=== PATIENT | female | born 1950 | race Caucasian/White ===

== ENCOUNTER 2020-11-01 09:13 | Outpatient (REF) | payer MEDICARE, OTHER, SELFPAY ==
[2020-11-01 11:23] LABS: MANUAL DIFF FLAG NO
[2020-11-01 11:32] LABS: Basophils Percent Auto 0.5 % (0-2); Eosinophils Absolute Auto 0.2 X10*3/uL (0.0-0.4); Eosinophils Percent Auto 2.7 % (0-4); Hematocrit 39.4 % (37-47); Hemoglobin 12.9 g/dl (12.0-16.0); Imm Gran Abs Auto 0.02 X10*3/uL (0.00-0.03); Imm Gran Pct Auto 0.3 % (0.0-0.4); Lymphocytes Absolute Auto 1.2 X10*3/uL (1.2-4.9); Lymphocytes Percent Auto 19.6 % (20-40); Mean Corpuscular HGB Conc 32.7 g/dl (31.0-35.0); Mean Corpuscular Volume 94.7 fL (80-98); Mean Platelet Volume 12.3 fL (9.4-12.3); Monocytes Absolute Auto 0.6 X10*3/uL (0.1-1.2); Monocytes Percent Auto 9.3 % (2-11); Neutrophils Absolute Auto 4.2 X10*3/uL (2.0-8.3); Neutrophils Percent Auto 67.6 % (45-73); Platelet Count 234 X10*3/uL (160-400); Red Blood Count 4.16 X10*6/uL (4.20-5.50); Red Cell Distribution Width 12.4 % (11.0-16.0); White Blood Count 6.3 X10*3/uL (4.8-10.8)
[2020-11-01 11:54] LABS: Alanine Aminotransferase 25 U/L (0-31); Albumin Level 4.6 g/dL (3.5-5.0); Alkaline Phosphatase 78 U/L (39-117); Anion Gap 14 (12-20); Aspartate Amino Transferase 20 U/L (5-31); Bilirubin Total 0.7 mg/dL (0.0-1.0); Blood Urea Nitrogen 21 mg/dL (9-16); Calcium 9.8 mg/dL (8.4-10.2); Carbon Dioxide 27 mmol/L (22-29); Chloride 107 mmol/L (96-108); Cholesterol 195 mg/dL; Estimated Glomerular Filt Rate 47; Glucose Fasting 93 mg/dL (60-99); HDL Cholesterol 55 mg/dL; LDL Cholesterol Calculated 124 mg/dl; Potassium 4.7 mmol/L (3.3-5.1); Sodium 143 mmol/L (135-145); Total Protein 7.2 g/dL (6.5-8.0); Triglycerides 84 mg/dL
[2020-11-01 12:18] LABS: TSH reflex Free T4 3.46 uIU/mL (0.32-4.0)
== END 2020-11-01 09:14 | disposition home or self-care (01) ==
LOC: HO.HMGCLDS 09:13
PROVIDERS: PCP Internal Medicine; Visit Provider Internal Medicine
DX: R07.9 Chest pain, unspecified (principal); I12.9 Hypertensive chronic kidney disease with stage 1 through stage 4 chronic kidney disease, or unspecified chronic kidney disease; N18.30 Chronic kidney disease, stage 3 unspecified; I34.0 Nonrheumatic mitral (valve) insufficiency
CPT/HCPCS: 36415; 80053; 80061; 84443; 85025

== ENCOUNTER → 2020-12-07 10:19 | Outpatient (REF) | payer MEDICARE, OTHER, SELFPAY ==
--- NOTE | 2020-12-07 10:47 | CA_ITS ---
Transthoracic Echocardiogram Patient (Last, First, Middle): Annie Carcamo, Gender: Female Date of : 1950 Age: 70 Procedure Date: 12/07/2020 Procedure Type: Transthoracic Echocardiogram Location: OP Height: 162.56 cm Weight: 112.04 kg BSA: 2.14 m2 Heart Rate: bpm BP: 170 / 82 mmHg Quality Nurse: ALEJANDRO Luis MD: Kajal White MD Corn Sheller: Roberto Miramontes MD Symptoms: R07.9 - Chest pain, unspecified Study Quality: Fair ECG Rhythm: Sinus Conclusions: - 1. Normal LV systolic function with pseudonormal filling pattern 2. Mild left atrial enlargement 3. Mild aortic regurgitation with increased gradient across aortic valve, leaflets not well visualized, early aortic stenosis cannot be ruled out 4. [id number] mitral regurgitation 5. Borderline elevatedRV systolic pressure 6. No pericardial effusion Findings Left Ventricle Normal left ventricular size, thickness, and systolic function. The visually estimated ejection fraction is between 60-65%. Spectral Doppler is indicative of a pseudonormal filling pattern. E/E prime ratio is between 8 and 15 consistent with indeterminate filling pressures. Right Ventricle Normal right ventricular cavity size and systolic function. Atria The left atrium is mildly dilated. There is no evidence of interatrial shunt. The right atrium is likely dilated. Aortic Valve The aortic valve was not well visualized. The peak aortic gradient is 21 mmHg.The mean gradient is 11 mmHg. There is mild aortic valve regurgitation. Mitral Valve There is mild anterior and moderate posterior mitral leaflet thickening. The posterior mitral leaflet has restricted mobility. There is mild mitral annular calcification. There is mild to moderate mitral valve regurgitation. There is no mitral valve stenosis. Pulmonic Valve The pulmonic valve was not well visualized. Tricuspid Valve Likely normal tricuspid valve structure and function. There is mild tricuspid valve regurgitation. The right ventricular systolic pressure is normal. The right ventricular systolic pressure is 39 mmHg. Normal right atrial pressure. Great Vessels All visible segments of the aorta are normal in size. The pulmonary artery was not well visualized. Venous The inferior vena cava is normal in size and collapses greater than 50% with inspiration. Pericardium/Pleural There is no evidence of pericardial effusion. Prior Study Comparison No prior study available for comparison. Measurements 2D Linear Measurements IVSd: 1.07 0.6-0.9/0.6-1.0 cm LVIDd: 5.03 3.9-5.3/4.2-5.9 cm LVIDd Index: 2.35 2.4-3.2/2.2-3.1 cm/m2 LVIDs: 3.61 2.0-3.6 cm LVPWd: 1.09 0.7-1.1 cm Ao Root: 3.50 2.1-3.5 cm LA Diam: 4.20 2.7-3.8/3.0-4.0 cm LAIDs Index: 1.96 1.5-2.3 cm/m2 LV Mass: 254.21 67-162/88-224 g LV Mass Index: 118.79 43-95/49-115 g/m2 LVOT Diam: 2.10 3.0+(-)1.3 cm Mitral Valve MV Pk E: 1.57 MV PK A: 1.39 MV Decel Time: 208.00 E/A: 1.10 E'Lateral: 9.03 E'Medial: 7.94 E/E' Med: 19.80 E/E' Lat: 17.40 PHT: 61.00 MVA PHT: 3.61 Decel [place]: 7.54 Aortic Valve AoV Pk Jason: 2.31 AoV Mn Jason: 1.50 AoV VTI: 0.55 AoV Pk Grad: 21.00 Aov Mn Grad: 11.00 ZAC Cont.VTI: 2.41 LVOT LVOT Pk Jason: 1.51 LVOT Mn Jason: 1.01 LVOT VTI: 0.38 LVOT Pk Grad: 9.00 LVOT Mn Grad: 5.00 LVOT Diam: 2.10 LVOT Area: 3.46 Diastolic Function MV Pk E: 1.57 MV Pk A: 1.39 E/A: 1.10 E'Medial: 7.94 E/E' Med: 19.80 E' Laterial: 9.03 E/E' Lat: 17.40 Tricuspid Valve TR Pk Jason: 2.98 TR Pk Grad: 36.00 RA Press: 3.00 RVSP: 39.00 Great Vessels Aorta Ao Root-2D: 3.50 2.0-3.7 cm Ao Asc: 3.00 2.1-3.4 cm Ao Arch: 2.20 Updated in Other Vendor System with Status of Final Roberto Miramontes MD electronically signed on 12/08/2020 3:23:47 PM with status of Final
== END ==
LOC: HO.CARD 10:19
PROVIDERS: Visit Provider Internal Medicine
DX: R07.9 Chest pain, unspecified (principal); I34.0 Nonrheumatic mitral (valve) insufficiency; I12.9 Hypertensive chronic kidney disease with stage 1 through stage 4 chronic kidney disease, or unspecified chronic kidney disease; N18.30 Chronic kidney disease, stage 3 unspecified
CPT/HCPCS: 93306

== ENCOUNTER 2021-05-29 08:02 | Outpatient (REF) | payer MEDICARE, OTHER, SELFPAY ==
[2021-05-29 11:43] LABS: Alanine Aminotransferase 17 U/L (0-31); Albumin Level 4.6 g/dL (3.5-5.0); Alkaline Phosphatase 74 U/L (39-117); Anion Gap 13 (12-20); Aspartate Amino Transferase 16 U/L (5-31); Bilirubin Total 0.8 mg/dL (0.0-1.0); Blood Urea Nitrogen 20 mg/dL (9-16); Calcium 10.2 mg/dL (8.4-10.2); Carbon Dioxide 26 mmol/L (22-29); Chloride 109 mmol/L (96-108); Estimated Glomerular Filt Rate 41; Glucose Fasting 93 mg/dL (60-99); Potassium 4.8 mmol/L (3.3-5.1); Sodium 143 mmol/L (135-145)
== END 2021-05-29 08:03 | disposition home or self-care (01) ==
LOC: HO.HMGCLDS 08:02
PROVIDERS: PCP Internal Medicine; Visit Provider Internal Medicine
DX: I13.0 Hypertensive heart and chronic kidney disease with heart failure and stage 1 through stage 4 chronic kidney disease, or unspecified chronic kidney disease (principal); N18.30 Chronic kidney disease, stage 3 unspecified; I50.9 Heart failure, unspecified
CPT/HCPCS: 36415; 80053

== ENCOUNTER 2021-06-27 08:24 | Outpatient (REF) | payer MEDICARE, OTHER, SELFPAY ==
--- NOTE | ~2021-06-27 | US_ITS ---
EXAMINATION: US ABDOMEN COMPLETE CLINICAL INFORMATION: Abdominal pain. COMPARISON: None. TECHNIQUE: Real-time imaging of the abdominal viscera. FINDINGS: PANCREAS: Normal. ABDOMINAL AORTA: The proximal, mid, and distal segments are normal in caliber except for mild atherosclerotic calcification. INFERIOR VENA CAVA: Visualized portions are normal. LIVER: The right hepatic lobe measures 17.0 cm in length. The liver is normal in size. The liver contour is normal. Parenchymal echogenicity is normal. No focal hepatic lesion. There is no intrahepatic biliary duct dilatation seen. GALLBLADDER: Multiple echogenic gallstones shadowing the entire gallbladder. There is positive MARYANN sign. Gallbladder wall thickness is 0.15 cm. COMMON BILE DUCT: Normal in caliber measuring 0.29 cm in diameter. RIGHT KIDNEY: There is an anechoic cyst in the lower pole measuring 1.8 x 1.9 x 1.6 cm. No hydronephrosis. No renal calculi or focal parenchymal lesions. The kidney measures 10.0 cm in maximum dimension. LEFT KIDNEY: There is a complex upper pole cyst with septations measuring 5.9 x 3.5 x 4.3 cm, Bosniak type II. In addition, there are 3 anechoic cysts which appear to be communicating with each other in the lower pole. The largest cyst measures 3.4 x 3.0 x 3.2 cm. No hydronephrosis. No renal calculi or focal parenchymal lesions. The kidney measures 11.3 cm in maximum dimension. SPLEEN: Normal. The spleen measures 11.5 cm in maximum dimension. FREE FLUID: None. US/US abdomen complete IMPRESSION: Gallstones with positive MARYANN sign. Gallbladder wall thickness is 0.15 cm. Complex cyst upper pole left kidney. Three simple cysts connecting to each other in lower pole left kidney. Mild hepatic steatosis.
== END 2021-06-27 08:25 | disposition home or self-care (01) ==
LOC: HO.HMGCX 08:24
PROVIDERS: PCP Internal Medicine; Visit Provider Internal Medicine
DX: R10.9 Unspecified abdominal pain (principal)
CPT/HCPCS: 76700

== ENCOUNTER 2021-12-31 08:28 | Outpatient (REF) | payer MEDICARE, OTHER, SELFPAY ==
[2021-12-31 11:35] LABS: Hematocrit 38.2 % (37.0-47.0); Hemoglobin 12.1 g/dl (12.0-16.0); Mean Corpuscular HGB Conc 31.7 g/dl (31.0-35.0); Mean Corpuscular Hemoglobin 30.6 pg (27.0-33.0); Mean Corpuscular Volume 96.5 fL (80.0-98.0); Platelet Count 263 X10*3/uL (160-400); Red Blood Count 3.96 X10*6/uL (4.20-5.50); Red Cell Distribution Width 12.2 % (11.0-16.0); White Blood Count 7.9 X10*3/uL (4.8-10.8)
[2021-12-31 12:03] LABS: TSH reflex Free T4 2.39 uIU/mL (0.32-4.0)
[2021-12-31 12:04] LABS: Alanine Aminotransferase 20 U/L (0-31); Albumin Level 4.2 g/dL (3.5-5.0); Alkaline Phosphatase 84 U/L (39-117); Anion Gap 15 (12-20); Aspartate Amino Transferase 23 U/L (5-31); Bilirubin Total 0.7 mg/dL (0.0-1.0); Blood Urea Nitrogen 17 mg/dL (9-16); Calcium 10.1 mg/dL (8.4-10.2); Carbon Dioxide 24 mmol/L (22-29); Chloride 107 mmol/L (96-108); Cholesterol 191 mg/dL; Estimated Glomerular Filt Rate 45; Glucose Fasting 95 mg/dL (60-99); HDL Cholesterol 54 mg/dL; LDL Cholesterol Calculated 126 mg/dl; Potassium 4.5 mmol/L (3.3-5.1); Sodium 141 mmol/L (135-145); Total Protein 6.6 g/dL (6.5-8.0); Triglycerides 55 mg/dL
== END 2021-12-31 08:29 | disposition home or self-care (01) ==
LOC: HO.HMGCLDS 08:28
PROVIDERS: PCP Internal Medicine; Visit Provider Internal Medicine
DX: Z00.00 Encounter for general adult medical examination without abnormal findings (principal); I12.9 Hypertensive chronic kidney disease with stage 1 through stage 4 chronic kidney disease, or unspecified chronic kidney disease; N18.30 Chronic kidney disease, stage 3 unspecified
CPT/HCPCS: 36415; 80053; 80061; 84443; 85027

== ENCOUNTER 2022-09-03 09:01 | Outpatient (REF) | payer MEDICARE, OTHER, SELFPAY ==
[2022-09-03 14:22] LABS: MANUAL DIFF FLAG NO
[2022-09-03 14:30] LABS: Basophils Absolute Auto 0.1 X10*3/uL (0.0-0.2); Basophils Percent Auto 0.4 % (0-2); Eosinophils Absolute Auto 0.1 X10*3/uL (0.0-0.4); Eosinophils Percent Auto 1.2 % (0-4); Hematocrit 38.5 % (37.0-47.0); Hemoglobin 12.1 g/dl (12.0-16.0); Imm Gran Abs Auto 0.06 X10*3/uL (0.00-0.03); Imm Gran Pct Auto 0.5 % (0.0-0.4); Lymphocytes Absolute Auto 1.2 X10*3/uL (1.2-4.9); Lymphocytes Percent Auto 10.8 % (20-40); Mean Corpuscular HGB Conc 31.4 g/dl (31.0-35.0); Mean Corpuscular Hemoglobin 30.4 pg (27.0-33.0); Mean Corpuscular Volume 96.7 fL (80.0-98.0); Mean Platelet Volume 11.9 fL (9.4-12.3); Monocytes Absolute Auto 1.1 X10*3/uL (0.1-1.2); Monocytes Percent Auto 9.2 % (2-11); Neutrophils Absolute Auto 8.9 x10*3/uL (2.0-8.3); Neutrophils Percent Auto 77.9 % (45-73); Platelet Count 443 X10*3/uL (160-400); Red Blood Count 3.98 X10*6/uL (4.20-5.50); Red Cell Distribution Width 12.5 % (11.0-16.0); White Blood Count 11.5 X10*3/uL (4.8-10.8)
[2022-09-03 17:04] LABS: Alanine Aminotransferase 21 U/L (0-31); Albumin Level 4.1 g/dL (3.5-5.0); Alkaline Phosphatase 85 U/L (39-117); Anion Gap 15 (12-20); Aspartate Amino Transferase 19 U/L (5-31); Bilirubin Total 0.6 mg/dL (0.0-1.0); Blood Urea Nitrogen 13 mg/dL (9-16); Calcium 9.5 mg/dL (8.4-10.2); Carbon Dioxide 26 mmol/L (22-29); Chloride 105 mmol/L (96-108); Cholesterol 174 mg/dL; Estimated Glomerular Filt Rate 55; Glucose Fasting 101 mg/dL (60-99); HDL Cholesterol 45 mg/dL; LDL Cholesterol Calculated 113 mg/dl; Potassium 4.4 mmol/L (3.3-5.1); Sodium 142 mmol/L (135-145); Total Protein 6.8 g/dL (6.5-8.0); Triglycerides 83 mg/dL; Vitamin D 25-OH Total 41.3 ng/mL (>30)
== END 2022-09-03 09:02 | disposition home or self-care (01) ==
LOC: HO.HMGCLDS 09:01
PROVIDERS: PCP Internal Medicine; Visit Provider Internal Medicine
DX: I12.9 Hypertensive chronic kidney disease with stage 1 through stage 4 chronic kidney disease, or unspecified chronic kidney disease (principal); N18.30 Chronic kidney disease, stage 3 unspecified; I34.0 Nonrheumatic mitral (valve) insufficiency
CPT/HCPCS: 36415; 80053; 80061; 82306; 85025

== ENCOUNTER 2023-03-21 09:11 | Outpatient (REF) | payer MEDICARE, OTHER, SELFPAY ==
[2023-03-21 11:17] LABS: MANUAL DIFF FLAG NO
[2023-03-21 11:20] LABS: Basophils Percent Auto 0.5 % (0-2); Eosinophils Absolute Auto 0.2 X10*3/uL (0.0-0.4); Eosinophils Percent Auto 2.9 % (0-4); Hemoglobin 12.4 g/dl (12.0-16.0); Imm Gran Abs Auto 0.01 X10*3/uL (0.00-0.03); Imm Gran Pct Auto 0.2 % (0.0-0.4); Lymphocytes Absolute Auto 1.2 X10*3/uL (1.2-4.9); Mean Corpuscular HGB Conc 32.6 g/dl (31.0-35.0); Mean Corpuscular Hemoglobin 31.3 pg (27.0-33.0); Monocytes Absolute Auto 0.6 X10*3/uL (0.1-1.2); Monocytes Percent Auto 10.2 % (2-11); Neutrophils Absolute Auto 4.2 x10*3/uL (2.0-8.3); Neutrophils Percent Auto 67.2 % (45-73); Platelet Count 248 X10*3/uL (160-400); Red Blood Count 3.96 X10*6/uL (4.20-5.50); Red Cell Distribution Width 12.5 % (11.0-16.0); White Blood Count 6.2 X10*3/uL (4.8-10.8)
[2023-03-21 11:44] LABS: Alanine Aminotransferase 17 U/L (0-31); Albumin Level 4.4 g/dL (3.5-5.0); Alkaline Phosphatase 67 U/L (39-117); Anion Gap 17 (12-20); Aspartate Amino Transferase 18 U/L (5-31); Bilirubin Total 0.7 mg/dL (0.0-1.0); Blood Urea Nitrogen 18 mg/dL (9-16); Calcium 10.2 mg/dL (8.4-10.2); Carbon Dioxide 25 mmol/L (22-29); Chloride 107 mmol/L (96-108); Cholesterol 183 mg/dL; Estimated Glomerular Filt Rate 44; Glucose Fasting 92 mg/dL (60-99); HDL Cholesterol 64 mg/dL; LDL Cholesterol Calculated 105 mg/dl; Potassium 4.6 mmol/L (3.3-5.1); Sodium 144 mmol/L (135-145); Total Protein 7.3 g/dL (6.5-8.0); Triglycerides 70 mg/dL
[2023-03-21 12:00] LABS: TSH reflex Free T4 3.21 uIU/mL (0.32-4.0)
== END 2023-03-21 09:12 | disposition home or self-care (01) ==
LOC: HO.HMGCLDS 09:11
PROVIDERS: PCP Internal Medicine; Visit Provider Internal Medicine
DX: I12.9 Hypertensive chronic kidney disease with stage 1 through stage 4 chronic kidney disease, or unspecified chronic kidney disease (principal); N18.30 Chronic kidney disease, stage 3 unspecified
CPT/HCPCS: 36415; 80053; 80061; 84443; 85025

== ENCOUNTER 2023-04-01 09:26 | Outpatient (AMB) | payer MEDICARE, OTHER, SELFPAY ==
--- NOTE | 2023-04-01 09:34 | A.OFFVIS_ITS ---
Intake Vital Signs 04/01/23 09:35 Height 5 ft 4 in Weight 248 lb BMI 42.6 BP 132/70 Blood Pressure Location Lt brachial Position Sitting Pulse 64 Pulse Source Pulse Oximeter Pulse Oximetry (%) 96 Oxygen Delivery Method Room Air Intake Visit Reasons: V G0439 Intake Note: Pt is here today for AWV. Allergies fentanyl Adverse Reaction (Intermediate, Verified 04/01/23 09:39) she was told by surgeon that she had medication reaction Medication List - Last Reconciled 04/01/23 by Kajal White MD albuterol sulfate 90 mcg/actuation inhalation amlodipine 10 mg PO DAILY comp.stocking,knee,long,medium As directed flu vac 2020 [id number](PF) 60 mcg (15 mcg x 4)/0.5 mL mL IM fluticasone furoate-vilanterol 100-25 mcg/dose inhalation furosemide 40 mg PO DAILY labetalol 300 mg PO BID pantoprazole 40 mg PO DAILY valsartan 320 mg PO DAILY HPI V G0439 HPI Details Initiated the conversation about Advanced Directives. Advanced Directives help? patients prepare for current and future decisions about their medical treatment? and place of care. Discussed with patient that it is a process where a patients? current condition and prognosis are reviewed, their wishes for information? regarding their illness are elicited, and likely medical dilemmas are presented? and options discussed. The form can be amended as needed, reviewed yearly and? make changes as needed IPPE/AWV ? year old presents? for her ? Annual? Wellness Visit, initial visit.? Medical / Social History Reviewed? Past Medical History ?Yes? . ? [place]? of Care / Care Team list updated ?Yes . ? Surgical/Hospitalization? History ?Yes . ? Current Medications? (including OTC and supplements) ?Yes . ? Family History ?Yes? . ? Tobacco? Control form ?Yes . ? AUDIT-C (Alcohol use) form? ?Yes . ? Illicit drug use in Social? History ?Yes . ? Current diagnosis of? depression? ?No ? Appropriate PHQ2/PHQ9? completed ?Yes . ? Data entered by ?Medical? [facility] [employer] and reviewed by provider ? Fall Risk ? Fall? History? Have you had any falls with? injury in the past year? ?No . ? Have you had two or more? falls in the past year? ?No . ? Fall Risk Assessment: ?No? falls in the past year . ? HRA filled out by? the patient, reviewed by Provider and scanned. ? IPPE/AWV ? Balance? [place]? ?Yes . ? Tandem? walk ?Yes . ? Walk and? Turn ?Yes . ? Rise from? sit to stand ?Yes . ?Vision? Corrective? lens ?Yes ? Vision? screen ? Up-to-date, has an appointment [] for vision? screening and glaucoma screening ?Hearing? Whisper? test ?pass .? Initiated the conversation about Advanced Directives. Advanced Directives help? patients prepare for current and future decisions about their medical treatment? and place of care. Discussed with patient that it is a process where a patients? current condition and prognosis are reviewed, their wishes for information? regarding their illness are elicited, and likely medical dilemmas are presented? and options discussed. The form can be amended as needed, reviewed yearly and? make changes as needed Written? Plan?Completed. See Patient? Documents. Pt presents for annual [facility] Medical History Abdominal pain Annual physical exam Asthma Martínez's esophagus Chest pain CKD (chronic kidney disease), stage III Gall stones Heart murmur History of mammogram HTN (hypertension) Mitral regurgitation Osteoporosis Venous insufficiency Surgical History H/O colonoscopy H/O hysterectomy with unilateral oophorectomy S/P total abdominal hysterectomy Family History Father No problems noted. Mother CVD (cardiovascular disease) Social History Housing: Condominium Alcohol intake: never Patient Tobacco Use Status: Former Tobacco user Quit Date: 1982 Tobacco use type: Cigarette Years Smoked: 8 years e-Cigarette/Vaping Use: Never Used Current occupational status: retired Questionnaire Medicare Wellness Checkup [age] What gender do you identify with?: female During the past 4 weeks, how much have you been bothered by emotional problems such as feeling anxious, depressed, irritable, sad or downhearted, and blue?: not at all During the past 4 weeks, has your physical & emotional health limited your social activities with family, friends, neighbors, or groups?: not at all During the past 4 weeks, how much bodily pain have you generally had?: moderate pain During the past 4 weeks, was someone available to help you if you needed & wanted help?: yes, quite a bit During the past 4 weeks, what was the hardest physical activity you could do for at least 2 minutes?: heavy Can you get to places out of walking distance without help? (For eg., can you travel alone on buses, taxis or drive your car?): Yes Can you go shopping for groceries or clothes without someone's help?: Yes Can you prepare your own meals?: Yes Can you do your housework without help?: Yes Because of any health problems, do you need the help of another person with your personal care needs such as eating, bathing, dressing or getting around the house?: No Can you handle your own money without help?: Yes During the past 4 weeks, how would you rate your health in general?: fair During the past 4 weeks how have things been going for you?: good & bad parts about equal Are you having difficulties driving your car?: no Do you always fasten your seat belt when you are in a car?: yes, usually During past 4 weeks, have you been bothered by the following: never: Falling or dizzy when standing up, Sexual problems?, Trouble eating well?, Teeth or denture problems? and Problems using the telephone? and always: Tiredness or fatigue? Have you fallen 2 or more times in the past year?: No Are you afraid of falling?: No Are you a smoker?: no During the past 4 weeks, how many drinks of wine, beer, or other alcoholic beverages did you have?: no alcohol at all Do you exercise for about 20 minutes 3 or more times a week?: no, I usually do not exercise this much Have you been given information to help with the following?: no: Hazards in your house that might hurt you? and no: Keeping track of your medications? How often do you have trouble taking medicines the way you have been told to take them?: I always take medicine as prescribed How confident are you that you can control & manage most of your health problems?: somewhat confident What is your race?: White Mini Mental State Exam (MMSE) Orientation What is the (year) (season) (date) (day) (month)?: year, season, date, day and month Registration Name of 3 unrelated objects clearly and slowly, then ask patient to repeat all 3 of them. (1st repeat determines score. Make sure they can repeat all three): object 2 and object 3 Attention & Calculation (CHOOSE ONE) Spell WORLD backwards (DLROW): 5 letters Recall Ask patient to repeat the 3 items from question #3.: object 1, object 2 and object 3 Language Show patient a wristwatch & ask what it is. Repeat for pencil.: watch and pencil Ask the patient to repeat the phrase 'No ifs, ands, or buts' after you.: correct Ask the patient to 'take a piece of paper with their right hand' 'fold paper in half' 'place paper on floor': take paper in right hand, fold paper in half and place paper on floor Print the sentence 'CLOSE YOUR EYES' on a piece. If patient actually closes eyes then score.: followed written direction Give patient a blank piece of paper & ask to write a sentence. Score if it contains a noun & verb.: sentence contains subject and verb Score Score: 23 Activity of Daily Living Bathing - sponge bath, tub bath or shower: receives no assistance (gets in/out by self, if usual bathing means Dressing - getting clothes from closets & drawers, including inner/outer garments & fasteners.: gets clothes & gets completely dressed without help Toileting - going to the 'toilet room' for urine/bowel elimination & cleaning self/arranging clothes: goes to toilet room, cleans self, arranges clothes without help Transfer: moves in & out of bed and chair without help (may use support object) Continence: controls urination/bowel movements completely by self Feeding: feeds self without help Total Score: 0 Information obtained from: patient Using telephone: independent Traveling: independent Shopping: independent Preparing meals: independent Housework: independent Taking medicine: independent Managing money: independent PHQ-9 Over the last 2 weeks, how often have you been bothered by any of the following problems? 1. Little interest or pleasure in doing things: not at all 2. Feeling down, depressed, or hopeless: not at all 3. Trouble falling or staying asleep, or sleeping too much: not at all 4. Feeling tired or having little energy: not at all 5. Poor appetite or overeating: not at all 6. Feeling bad about yourself - or that you are a failure or have let yourself or your family down: not at all 7. Trouble concentrating on things, such as reading the newspaper or watching television: not at all 8. Moving or speaking so slowly that other people could have noticed. Or the opposite - being so fidgety or restless that you have been moving around a lot more than usual: not at all 9. Thoughts that you would be better off or of hurting yourself in some way: not at all Total score: 0 Depression Screening Interpretation: Negative Source: Developed by Drs. Edward Mccormick, Jemima Parrish, Long Beltre and colleagues, with an educational delfin from [employer]. Review of Systems Const All systems reviewed & are unremarkable except as noted in HPI and below Reports no additional complaints Eyes Reports no additional complaints ENT Reports no additional complaints Card Reports no additional complaints Resp Reports no additional complaints GI Reports no additional complaints Reports no additional complaints Neuro Reports no additional complaints Physical Exam Vital Signs: Last Vital Signs Pulse 64 04/01/23 09:35 BP 132/70 04/01/23 09:35 Pulse Ox 96 04/01/23 09:35 Oxygen Delivery Method Room Air 04/01/23 09:35 BMI result Body Mass Index 42.6 Const General: no acute distress HEENT Head: Yes normal to inspection Eyes General: appearance normal, both eyes and all related structures Neck Neck: Yes no lymphadenopathy and Yes supple Resp Effort & Inspection: normal respiratory effort Auscultation: clear to auscultation bilaterally Cardio Rhythm: regular rhythm Heart sounds: S1 normal heart sound present and S2 normal heart sound present GI Inspection: Yes normal to inspection Palpation (GI): Soft to palpation Percussion: Yes normal to percussion Auscultation: normal bowel sounds Extrem Other: 4 +NONPITTING EDEMA BILATERALLY, WITH ERYTHEMA AND CHRONIC VENOUS STASIS Assessment & Plan Assessment & Plan (1) CKD (chronic 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 She is up-to-date with mammogram and colonoscopy. Follow-up in 6 months with a fasting labs before (5) Over weight: Code(s): E66.3 - Overweight Plan: Weight loss discussed with the patient (6) Edema: Code(s): R60.9 - Edema, unspecified Plan: Continue furosemide compression stockings and lower extremity elevation Orders: Orders Comprehensive Met. Panel 6 Months I10 - Essential (primary) hypertension, I34.0 - Nonrheumatic mitral (valve) insufficiency, N18.30 - Chronic kidney disease, stage 3 unspecified, Z00.00 - Encounter for general adult medical examination without abnormal findings Complete Blood Count Auto Diff 6 Months I10 - Essential (primary) hypertension, I34.0 - Nonrheumatic mitral (valve) insufficiency, N18.30 - Chronic kidney disease, stage 3 unspecified, Z00.00 - Encounter for general adult medical examination without abnormal findings Lipid Panel 6 Months I10 - Essential (primary) hypertension, I34.0 - Nonrheumatic mitral (valve) insufficiency, N18.30 - Chronic kidney disease, stage 3 unspecified, Z00.00 - Encounter for general adult medical examination without abnormal findings TSH reflex Free T4 6 Months I10 - Essential (primary) hypertension, I34.0 - Nonrheumatic mitral (valve) insufficiency, N18.30 - Chronic kidney disease, stage 3 unspecified, Z00.00 - Encounter for general adult medical examination without abnormal findings Medications: New triamcinolone acetonide 0.1% 1 appl topical DAILY 453.6 grams 1RF Quality Reporting (2019) Depression/Bipolar (159/160/161/177) PHQ-9: Total score: 0 Coding Level of Care Code Medicare Subsequent (G0439) Diagnoses CKD (chronic kidney disease), stage III N18.30 HTN (hypertension) I10 Mitral regurgitation I34.0 Annual physical exam Z00.00 Over weight E66.3 Edema R60.9 Advance Care Planning Advance Care Planning discussion: Declined forms
[2023-04-01 09:35] VITALS: BP 132/70; PULSE 64; O2SAT 96; BMI 42.6
== END 2023-04-01 10:31 | disposition home or self-care (01) ==
PROVIDERS: Visit Provider Internal Medicine
DX: Z00.00 Encounter for general adult medical examination without abnormal findings (principal); N18.30 Chronic kidney disease, stage 3 unspecified; Z68.41 Body mass index [BMI] 40.0-44.9, adult; E66.01 Morbid (severe) obesity due to excess calories; I12.9 Hypertensive chronic kidney disease with stage 1 through stage 4 chronic kidney disease, or unspecified chronic kidney disease; I34.0 Nonrheumatic mitral (valve) insufficiency; R60.9 Edema, unspecified
CPT/HCPCS: G0439

== ENCOUNTER 2023-09-26 09:41 | Outpatient (REF) | payer MEDICARE, OTHER, SELFPAY | END 2023-09-26 09:42 | disposition home or self-care (01) | LOC: HO.HMGCLDS 09:41 | PROVIDERS: PCP Internal Medicine; Visit Provider Internal Medicine | DX: Z00.00 Encounter for general adult medical examination without abnormal findings (principal); I12.9 Hypertensive chronic kidney disease with stage 1 through stage 4 chronic kidney disease, or unspecified chronic kidney disease; N18.30 Chronic kidney disease, stage 3 unspecified; I34.0 Nonrheumatic mitral (valve) insufficiency | CPT/HCPCS: 36415; 80053; 80061; 84443; 85025 ==

== ENCOUNTER 2023-10-07 09:47 | Outpatient (AMB) | payer MEDICARE, OTHER, SELFPAY ==
[2023-10-07 09:47] VITALS: BP 136/68; PULSE 69; O2SAT 96; BMI 42.2
--- NOTE | 2023-10-07 09:47 | A.OFFPC_ITS ---
Vital Signs 10/07/23 09:47 Height 5 ft 4 in Weight 246 lb BMI 42.2 BP 136/68 Blood Pressure Location Rt brachial Position Sitting Pulse 69 Pulse Source Pulse Oximeter Pulse Oximetry (%) 96 Oxygen Delivery Method Room Air Intake Visit Reasons: 6 month follow up Intake Note: Pt is here today for 6 months follow up visit. Allergies fentanyl Adverse Reaction (Intermediate, Verified 10/07/23 09:52) she was told by surgeon that she had medication reaction Medication List - Last Reconciled 10/07/23 by Kajal White MD albuterol sulfate 90 mcg/actuation inhalation amlodipine 10 mg PO DAILY comp.stocking,knee,long,medium As directed 30-40mmhg compr.stocking,knee,long,x-lrg 30-40 mmHg compression flu vac 2020 [id number](PF) 60 mcg (15 mcg x 4)/0.5 mL mL IM fluticasone furoate-vilanterol 100-25 mcg/dose inhalation furosemide 40 mg PO DAILY labetalol 300 mg PO BID pantoprazole 40 mg PO DAILY triamcinolone acetonide 0.1% 1 appl topical DAILY valsartan 320 mg PO DAILY Tobacco use date assessed: 10/07/23 Fall risk assessment: No Falls in past year Last assessed Fall Risk: 10/07/23 Dental Screening Dental Screen Date: 10/07/23 Did you have a dental visit in the last 12 months?: Yes Did you have a dental problem in the last 6 months where you did not have access to dental care?: No Was dental information given to patient?: Patient has dentist HPI 6 month follow up HPI Details PATIENT PRESENTS FOR THE FOLLOW-UP OF HYPERTENSION CHRONIC KIDNEY DISEASE STAGE 3 chronic lower extremity edema. Patient complains of weakness in her muscles but has not been physically active. She is planning to start using her equipment at home [facility] Medical History Gall stones Abdominal pain Annual physical exam Asthma Chest pain Mitral regurgitation Osteoporosis History of mammogram Venous insufficiency Martínez's esophagus CKD (chronic kidney disease), stage III Heart murmur HTN (hypertension) Surgical History S/P total abdominal hysterectomy H/O colonoscopy H/O hysterectomy with unilateral oophorectomy Family History Father No problems noted. Mother CVD (cardiovascular disease) Social History Housing: Condominium Alcohol intake: never Patient Tobacco Use Status: Former Tobacco user Quit Date: 1982 Tobacco use type: Cigarette Years Smoked: 8 years e-Cigarette/Vaping Use: Never Used Current occupational status: retired Cognitive needs: No Hearing needs: No Vision needs: Yes Questionnaire Thrive Questionnaire Date Thrive assessed: 06/21/21 AUDIT C Alcohol Use Questionnaire (AUDIT-C) 1. How often do you have a drink containing alcohol?: Never 3. How often do you have six or more drinks on one occasion?: Never Total Score: 0 Review of Systems Const All systems reviewed & are unremarkable except as noted in HPI and below Reports no additional complaints Eyes Reports no additional complaints ENT Reports no additional complaints Card Reports no additional complaints Resp Reports no additional complaints GI Reports no additional complaints Reports no additional complaints Physical exam (Primary Care) Vital Signs: Last Vital Signs Pulse 69 10/07/23 09:47 BP 136/68 10/07/23 09:47 Pulse Ox 96 10/07/23 09:47 Oxygen Delivery Method Room Air 10/07/23 09:47 BMI result Body Mass Index 42.2 Tobacco/Smoking Status: Tobacco use Status Tobacco use date assessed 10/07/23 10/07/23 09:54 Patient Tobacco Use Status Former Tobacco user 10/07/23 09:54 Tobacco use type Cigarette 10/07/23 09:48 e-Cigarette/Vaping Use Never Used 10/07/23 09:48 Thrive Assessment: Date of Thrive Assessment Date Thrive assessed 06/21/21 10/07/23 09:48 Const General: no acute distress HENMT Ears: hearing grossly normal bilaterally Eyes General: appearance normal, both eyes and all related structures Resp Effort & Inspection: normal respiratory effort Auscultation: clear to auscultation bilaterally Cardio Rhythm: regular rhythm Heart sounds: S1 normal heart sound present and S2 normal heart sound present GI Inspection: Yes normal to inspection Palpation (GI): Soft to palpation Percussion: Yes normal to percussion Auscultation: normal bowel sounds Extrem Other: 4+ nonpitting edema bilaterally Assessment and Plan Assessment & Plan (1) Mitral regurgitation: Comment: Echo 3 10/2020, mod MR, mild AR, nl EF Code(s): I34.0 - Nonrheumatic mitral (valve) insufficiency Plan: Check echocardiogram to follow-up on MR (2) CKD (chronic kidney disease), stage III: 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 Panel 4 Months I10 - Essential (primary) hypertension, I34.0 - Nonrheumatic mitral (valve) insufficiency, N18.30 - Chronic kidney disease, stage 3 unspecified CA echo transthoracic complete Today I10 - Essential (primary) hypertension, I34.0 - Nonrheumatic mitral (valve) insufficiency, N18.30 - Chronic kidney disease, stage 3 unspecified Erythrocyte Sedimentation Rate 4 Months I10 - Essential (primary) hypertension, I34.0 - Nonrheumatic mitral (valve) insufficiency, N18.30 - Chronic kidney disease, stage 3 unspecified Medications: New compr.stocking,knee,long,x-lrg 30-40 mmHg compression 12 ea 1RF Coding Level of Care Code Est Pt Level 4 (03616) Diagnoses Mitral regurgitation I34.0 CKD (chronic kidney disease), stage III N18.30 HTN (hypertension) I10 Over weight E66.3 Asthma J45.909
== END 2023-10-07 11:00 | disposition home or self-care (01) ==
PROVIDERS: PCP Internal Medicine; Visit Provider Internal Medicine
DX: I12.9 Hypertensive chronic kidney disease with stage 1 through stage 4 chronic kidney disease, or unspecified chronic kidney disease (principal); N18.30 Chronic kidney disease, stage 3 unspecified; Z68.41 Body mass index [BMI] 40.0-44.9, adult; E66.01 Morbid (severe) obesity due to excess calories; I34.0 Nonrheumatic mitral (valve) insufficiency; J45.909 Unspecified asthma, uncomplicated
CPT/HCPCS: 99214

== ENCOUNTER → 2023-12-03 10:46 | Outpatient (REF) | payer MEDICARE, OTHER, SELFPAY ==
--- NOTE | 2023-12-03 10:49 | CA_ITS ---
Transthoracic Echocardiogram Patient (Last, First, Middle): Annie Carcamo, Gender: Female Date of : 1950 Age: 73 Procedure Date: 12/03/2023 Procedure Type: Transthoracic Echocardiogram Location: OP Height: 162.56 cm Weight: 111.13 kg BSA: 2.13 m2 Heart Rate: bpm BP: 140 / 70 mmHg Steam Conditioner Filling: TO Referring MD: Kajal White MD Ore Bridge Operator: Roberto Miramontes MD Symptoms: I34.0 - Nonrheumatic mitral (valve) insufficiency Study Quality: Fair ECG Rhythm: Atrial Fibrillation Conclusions: - 1. Normal LV ejection fraction of 60 65% 2. At least moderately dilated right and left atrium 3. Mild aortic stenosis and regurgitation 4. Tadn-sk-hbovrzwa mitral regurgitation 5. Normal measured RV systolic pressure but significantly elevated right atrial pressures 6. Upper limits of normal ascending aortic size 7. No gross pericardial effusion Findings Left Ventricle Normal left ventricular size, thickness, and systolic function. The visually estimated ejection fraction is between 60-65%. Diastolic function is indeterminate on the basis of available data. Right Ventricle Mildly increased right ventricular cavity size. There is normal right ventricular systolic function. Atria The left atrium is moderately dilated. There is no evidence of interatrial shunt. The right atrium is moderately dilated. Aortic Valve There is mild calcification of the aortic valve. There is mild aortic valve stenosis. The peak aortic gradient is 15 mmHg.The mean gradient is 7 mmHg. The aortic valve area is 1.78 cm2. There is mild aortic valve regurgitation. Mitral Valve There is mild anterior and posterior mitral leaflet thickening. There is mild to moderate mitral valve regurgitation. There is no mitral valve stenosis. Pulmonic Valve The pulmonic valve is likely normal. There is trace pulmonic valve regurgitation. Tricuspid Valve Normal tricuspid valve structure. There is mild tricuspid valve regurgitation. Significantly elevated right atrial pressure. There is no evidence of pulmonary hypertension. Great Vessels The pulmonary artery was not well visualized. Venous The inferior vena cava is moderately dilated and collapses less than 50% with inspiration. Pericardium/Pleural There is no evidence of pericardial effusion. Measurements 2D Linear Measurements IVSd: 0.93 0.6-0.9/0.6-1.0 cm LVIDd: 4.66 3.9-5.3/4.2-5.9 cm LVIDd Index: 2.19 2.4-3.2/2.2-3.1 cm/m2 LVIDs: 3.20 2.0-3.6 cm LVPWd: 0.92 0.7-1.1 cm LA Diam: 4.10 2.7-3.8/3.0-4.0 cm LAIDs Index: 1.92 1.5-2.3 cm/m2 LV Mass: 181.16 67-162/88-224 g LV Mass Index: 85.05 43-95/49-115 g/m2 LVOT Diam: 2.00 3.0+(-)1.3 cm 2D Systolic Function EF 4C: 63.40 >55% EF 2C: 68.10 >55% EF BiP: 65.90 >55% Mitral Valve MV VTI: 0.41 MV Pk Jason: 1.68 MV Mn Jason: 0.82 MV Pk Grad: 11.00 MV Mn Grad: 4.00 MV Pk E: 1.56 MV Decel Time: 211.00 E'Lateral: 10.80 E'Medial: 10.30 E/E' Med: 15.10 E/E' Lat: 14.40 PHT: 62.00 MVA PHT: 3.55 MVA Continuity: 1.93 Decel [place]: 7.41 MR Vol - PW Dopp: 32.16 MR VTI: 2.01 MR ERO: 16.00 MR Alias Jason: 0.39 MR RAD: 0.60 Aortic Valve AoV Pk Jason: 1.91 AoV Mn Jason: 1.22 AoV VTI: 0.45 AoV Pk Grad: 15.00 Aov Mn Grad: 7.00 ZAC Cont.VTI: 1.78 LVOT LVOT Pk Jason: 1.04 LVOT Mn Jason: 0.68 LVOT VTI: 0.25 LVOT Pk Grad: 4.00 LVOT Mn Grad: 2.00 LVOT Diam: 2.00 LVOT Area: 3.14 Diastolic Function MV Pk E: 1.56 E'Medial: 10.30 E/E' Med: 15.10 E' Laterial: 10.80 E/E' Lat: 14.40 Right Ventricle TAPSE (mm): 22.60 TVS' Jason: 12.40 Tricuspid Valve TR Pk Jason: 2.41 TR Pk Grad: 23.00 RA Press: 15.00 RVSP: 38.00 Great Vessels Aorta Sinus of Valsalva: 3.22 2.0-3.5 cm Ao Asc: 3.60 2.1-3.4 cm Updated in Other Vendor System with Status of Final Roberto Miramontes MD electronically signed on 12/04/2023 1:44:47 PM with status of Final
== END ==
LOC: HO.CARD 10:46
PROVIDERS: PCP Internal Medicine; Visit Provider Internal Medicine
DX: I12.9 Hypertensive chronic kidney disease with stage 1 through stage 4 chronic kidney disease, or unspecified chronic kidney disease (principal); N18.30 Chronic kidney disease, stage 3 unspecified; I34.0 Nonrheumatic mitral (valve) insufficiency
CPT/HCPCS: 93306

== ENCOUNTER → 2023-12-03 10:49 | Outpatient (BNV) | payer MEDICARE, OTHER, SELFPAY | PROVIDERS: PCP Internal Medicine; Visit Provider Internal Medicine Cardiovascular Disease | DX: I35.2 Nonrheumatic aortic (valve) stenosis with insufficiency (principal) | CPT/HCPCS: 93306 ==

== ENCOUNTER 2024-01-23 09:13 | Outpatient (REF) | payer MEDICARE, OTHER, SELFPAY ==
[2024-01-23 11:53] LABS: Erythrocyte Sedimentation Rate 10 MM/HR (0-20)
[2024-01-23 12:09] LABS: Alanine Aminotransferase 17 U/L (0-31); Albumin Level 4.7 g/dL (3.5-5.0); Alkaline Phosphatase 68 U/L (39-117); Anion Gap 15 (12-20); Aspartate Amino Transferase 16 U/L (5-31); Bilirubin Total 0.7 mg/dL (0.0-1.0); Blood Urea Nitrogen 28 mg/dL (9-16); Calcium 10.7 mg/dL (8.4-10.2); Carbon Dioxide 26 mmol/L (22-29); Chloride 107 mmol/L (96-108); Estimated Glomerular Filt Rate 38; Glucose Random 98 mg/dL (60-115); Sodium 143 mmol/L (135-145); Total Protein 7.5 g/dL (6.5-8.0)
== END 2024-01-23 09:14 | disposition home or self-care (01) ==
LOC: HO.HMGCLDS 09:13
PROVIDERS: PCP Internal Medicine; Visit Provider Internal Medicine
DX: I34.0 Nonrheumatic mitral (valve) insufficiency (principal); N18.30 Chronic kidney disease, stage 3 unspecified; I10 Essential (primary) hypertension
CPT/HCPCS: 36415; 80053; 85652

== ENCOUNTER 2024-02-11 09:53 | Outpatient (AMB) | payer MEDICARE, OTHER, SELFPAY ==
--- NOTE | 2024-02-11 09:57 | MHC.PC.OV ---
Vital Signs 02/11/24 09:59 Height 5 ft 4 in Weight 250 lb BMI 42.9 BP 130/62 Blood Pressure Location Lt brachial Position Sitting Pulse 73 Pulse Source Pulse Oximeter Pulse Oximetry (%) 96 Oxygen Delivery Method Room Air Intake Visit Reasons: Annual PE Intake Note: Pt is here today for PE. Pt states that she has not taken her BP med yet. Allergies fentanyl Adverse Reaction (Intermediate, Verified 02/11/24 10:11) she was told by surgeon that she had medication reaction Medication List - Last Reconciled 02/11/24 by Kajal White MD albuterol sulfate 90 mcg/actuation inhalation amlodipine 10 mg PO DAILY comp.stocking,knee,long,medium As directed 30-40mmhg compr.stocking,knee,long,x-lrg 30-40 mmHg compression flu vac 2020 [id number](PF) 60 mcg (15 mcg x 4)/0.5 mL mL IM fluticasone furoate-vilanterol 100-25 mcg/dose inhalation furosemide 40 mg PO DAILY labetalol 300 mg PO BID montelukast 10 mg PO DAILY pantoprazole 40 mg PO DAILY triamcinolone acetonide 0.1% 1 appl topical DAILY valsartan 320 mg PO DAILY Tobacco use date assessed: 02/11/24 Fall risk assessment: No Falls in past year Last assessed Fall Risk: 02/11/24 Dental Screening Dental Screen Date: 02/11/24 Did you have a dental visit in the last 12 months?: Yes Did you have a dental problem in the last 6 months where you did not have access to dental care?: No Was dental information given to patient?: Patient has dentist HPI Annual PE HPI Details Pt presents for PE. PFSH Medical History (Updated 02/11/24 @ 10:58 by Kajal White MD) Gall stones Abdominal pain Annual physical exam Asthma Chest pain Mitral regurgitation Osteoporosis History of mammogram Venous insufficiency Martínez's esophagus CKD (chronic kidney disease), stage III Heart murmur HTN (hypertension) Surgical History (Updated 02/11/24 @ 10:42 by Kajal White MD) S/P total abdominal hysterectomy H/O colonoscopy H/O hysterectomy with unilateral oophorectomy Family History Father No problems noted. Mother CVD (cardiovascular disease) Social History Housing: Condominium Alcohol intake: never Patient Tobacco Use Status: Former Tobacco user Quit Date: 1982 Tobacco use type: Cigarette Years Smoked: 8 years e-Cigarette/Vaping Use: Never Used service: No Current occupational status: retired Cognitive needs: No Hearing needs: No Vision needs: Yes Questionnaire PHQ-9 Over the last 2 weeks, how often have you been bothered by any of the following problems? 1. Little interest or pleasure in doing things: not at all 2. Feeling down, depressed, or hopeless: not at all 3. Trouble falling or staying asleep, or sleeping too much: not at all 4. Feeling tired or having little energy: nearly every day 5. Poor appetite or overeating: nearly every day 6. Feeling bad about yourself - or that you are a failure or have let yourself or your family down: not at all 7. Trouble concentrating on things, such as reading the newspaper or watching television: not at all 8. Moving or speaking so slowly that other people could have noticed. Or the opposite - being so fidgety or restless that you have been moving around a lot more than usual: not at all 9. Thoughts that you would be better off or of hurting yourself in some way: not at all Total score: 6 Depression Screening Interpretation: Negative Depression Screening Done: Yes Source: Developed by Drs. Edward Mccormick, Jemima Parrish, Long Beltre and colleagues, with an educational delfin from [employer]. Thrive Questionnaire Date Thrive assessed: 02/11/24 I am a: Patient What is your living situation today?: I have a steady place to live Within the past 12 months, did the food you bought not last and you didn't have the money to get more?: Never true Within the past 12 months, did you worry whether your food would run out before you got money to buy more?: Never true Do you have trouble paying for medicines?: No Do you have trouble getting transportation to medical appointments?: No Do you have trouble paying your heating and electricity bill?: No Do you have trouble taking care of your child, family member or friend?: No Do you have trouble with day-to-day activities such as bathing, preparing meals, shopping, managing finances, etc.?: No Are you currently unemployed and looking for a job?: No Are you interested in more education?: No Please select the resources that you would like help with: None THRIVE Score: 0 AUDIT C Alcohol Use Questionnaire (AUDIT-C) 1. How often do you have a drink containing alcohol?: Never 3. How often do you have six or more drinks on one occasion?: Never Total Score: 0 RITU-7 AMB Questionnaire RITU-7 Date RITU - 7 assessed: 02/11/24 Feeling nervous, anxious, or on edge: 0 = Not at all Not being able to stop or control worryin = Not at all Worrying too much about different things: 0 = Not at all Trouble relaxin = Not at all Being so restless that it is hard to sit still: 0 = Not at all Becoming easily annoyed or irritable: 0 = Not at all Feeling afraid as if something awful might happen: 0 = Not at all Total RITU-7 score (0-4 normal; 5-9 mild; 10-14 moderate; 15-21 severe): 0 Source: Developed by Drs. Edward Mccormick, Jemima Parrish, Long Beltre and colleagues, with an educational delfin from [employer]. Review of Systems Const All systems reviewed & are unremarkable except as noted in HPI and below Reports no additional complaints Eyes Reports no additional complaints ENT Reports no additional complaints Card Reports no additional complaints Resp Reports no additional complaints GI Reports no additional complaints Reports no additional complaints Physical exam (Primary Care) Vital Signs: Last Vital Signs Pulse 73 02/11/24 09:59 BP 142/62 H 02/11/24 09:59 Pulse Ox 96 02/11/24 09:59 Oxygen Delivery Method Room Air 02/11/24 09:59 BMI result Body Mass Index 42.9 Tobacco/Smoking Status: Tobacco use Status Tobacco use date assessed 02/11/24 02/11/24 10:16 Patient Tobacco Use Status Former Tobacco user 02/11/24 09:59 Tobacco use type Cigarette 02/11/24 09:59 e-Cigarette/Vaping Use Never Used 02/11/24 09:59 Depression Screening Interpretation: Negative Thrive Assessment: Date of Thrive Assessment Date Thrive assessed 06/21/21 02/11/24 09:59 Const General: no acute distress HENMT Head: Yes normal to inspection Ears: hearing grossly normal bilaterally General nose exam: Normal external nose present Face and sinus: Yes normal facial exam Mouth: Normal oral and palatal mucosa present Throat: Yes posterior oropharynx normal Eyes General: appearance normal, both eyes and all related structures Neck Neck: Yes supple Resp Effort & Inspection: normal respiratory effort Auscultation: clear to auscultation bilaterally Cardio Rhythm: regular rhythm Heart sounds: S1 normal heart sound present and S2 normal heart sound present GI Inspection: Yes normal to inspection Palpation (GI): Soft to palpation Percussion: Yes normal to percussion Extrem Other: Nonpitting 4+ lower extremity edema Assessment and Plan Assessment & Plan (1) Osteoporosis: Comment: Dexa Dr. 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 repeat Echo 11/2023 unchanged Code(s): I34.0 - Nonrheumatic mitral (valve) insufficiency (6) Annual physical exam: Code(s): Z00.00 - Encounter for general adult medical examination without abnormal findings Plan: Well-balanced diet regular physical activity weight loss discussed with the patient. She is up-to-date with mammogram and colonoscopy (7) Asthma: Comment: Follows up with pulmonology Dr. Hatch every 3 months Code(s): J45.909 - Unspecified asthma, uncomplicated Plan: For chronic asthma add montelukast , continue Breo and antihistamine and Flonase nasal spray for seasonal allergies. patient follows up with vice president global digital marketing every 3 months Orders: Orders XR knee standing BI Today M25.561 - Pain in right knee, M25.562 - Pain in left knee XR DEXA axial skeleton Today M81.0 - Age-related osteoporosis without current pathological fracture Medications: New montelukast 10 mg PO DAILY 90 tabs 2RF Coding Level of Care Code Est Pt Prev Care >65y(23385) Diagnoses Osteoporosis M81.0 Knee pain, bilateral M25.561; M25.562 HTN (hypertension) I10 CKD (chronic kidney disease), stage III N18.30 Mitral regurgitation I34.0 Annual physical exam Z00.00 Asthma J45.909
[2024-02-11 09:59] VITALS: BP 130/62; PULSE 73; O2SAT 96; BMI 42.9
== END 2024-02-11 10:57 | disposition home or self-care (01) ==
PROVIDERS: PCP Internal Medicine; Visit Provider Internal Medicine
DX: Z00.00 Encounter for general adult medical examination without abnormal findings (principal); I12.9 Hypertensive chronic kidney disease with stage 1 through stage 4 chronic kidney disease, or unspecified chronic kidney disease; N18.30 Chronic kidney disease, stage 3 unspecified; M81.0 Age-related osteoporosis without current pathological fracture; M25.561 Pain in right knee; M25.562 Pain in left knee; I34.0 Nonrheumatic mitral (valve) insufficiency; J45.909 Unspecified asthma, uncomplicated
CPT/HCPCS: 99397

== ENCOUNTER 2024-02-11 10:57 | Outpatient (REF) | payer MEDICARE, OTHER, SELFPAY ==
--- NOTE | ~2024-02-11 | XR_ITS ---
EXAMINATION: XR KNEE AP STANDING CLINICAL INFORMATION: Pain in the right knee COMPARISON: None available. TECHNIQUE: AP bilateral standing view of the knees was obtained. FINDINGS: Right knee: Genu varus. Severe joint space narrowing of the medial compartment with marginal osteophytes. Lateral compartment marginal osteophytes without joint space narrowing. Patellofemoral compartment not assessed. Arterial calcification. Left knee: Medial compartment: There is joint space narrowing marginal osteophytes indicative of mild to moderate osteoarthritis. Lateral compartment marginal osteophytes without joint space narrowing indicative of mild osteoarthritis. Patellofemoral compartment not assessed. Arterial calcification noted.. XR/XR knee standing BI IMPRESSION: RIGHT KNEE: Osteoarthritis with degenerative changes severe in the medial compartment. LEFT KNEE: Osteoarthritis with degenerative changes most prominent medial compartment being mild to moderate.
== END 2024-02-11 10:58 | disposition home or self-care (01) ==
LOC: HO.HMGCX 10:57
PROVIDERS: PCP Internal Medicine; Visit Provider Internal Medicine
DX: M25.561 Pain in right knee (principal); M25.562 Pain in left knee
CPT/HCPCS: 73565

== ENCOUNTER 2024-03-10 16:10 | Outpatient (AMB) | payer MEDICARE, OTHER, SELFPAY ==
[2024-03-10 16:15] VITALS: BP 126/74; PULSE 73; TEMP 36.6; O2SAT 97
--- NOTE | 2024-03-10 16:15 | AM.OFFWIN_ITS ---
Intake Vital Signs 03/10/24 16:15 Height 5 ft 4 in BP 126/74 Blood Pressure Location Rt brachial Position Sitting Pulse 73 Pulse Source Pulse Oximeter Temp 97.8 F Temp Source Oral Pulse Oximetry (%) 97 Intake Visit Reasons: EP lft leg blisters/wheepin Patient Tobacco Use Status: Former Tobacco user Allergies fentanyl Adverse Reaction (Intermediate, Verified 03/10/24 16:15) she was told by surgeon that she had medication reaction Do you need a note to return to daycare/school/sports/work: No HPI HPI Comments History of Present Illness Details Patient is a 74-year-old female complaining of bilateral lower extremity week being x6 days, it is worse on the left side. She states she does take her daily Lasix and has been taking it every day. She denies using her compression stockings because she is having difficulty getting them on because her legs are bigger than they normally are. She denies any fevers or malodorous drainage. She denies any increase in her fluid intake or salt intake recently. [facility] Medical History (Updated 03/10/24 @ 16:34 by Mila Ballesteros PA-C) Gall stones Abdominal pain Annual physical exam Asthma Chest pain Mitral regurgitation Osteoporosis History of mammogram Venous insufficiency Martínez's esophagus CKD (chronic kidney disease), stage III Heart murmur HTN (hypertension) Surgical History (Updated 02/11/24 @ 10:42 by Kajal White MD) S/P total abdominal hysterectomy H/O colonoscopy H/O hysterectomy with unilateral oophorectomy Family History Father No problems noted. Mother CVD (cardiovascular disease) Social History Housing: Condominium Alcohol intake: never Patient Tobacco Use Status: Former Tobacco user Tobacco use type: Cigarette Years Smoked: 8 years e-Cigarette/Vaping Use: Never Used service: No Current occupational status: retired Cognitive needs: No Hearing needs: No Vision needs: Yes Review of Systems Const All systems reviewed & are unremarkable except as noted in HPI and below Physical Exam Vital Signs: Last Vital Signs Temp 97.8 F 03/10/24 16:15 Pulse 73 03/10/24 16:15 BP 126/74 03/10/24 16:15 Pulse Ox 97 03/10/24 16:15 Const General: cooperative, healthy appearing, comfortable, no acute distress and well developed Orientation/consciousness: patient oriented x3 Limitations: no limitations HEENT Head: Yes normal to inspection Eyes General: appearance normal, both eyes and all related structures Neck Neck: Yes normal visual inspection and Yes full ROM Resp Effort & Inspection: normal respiratory effort and able to speak in complete sentences Skin General skin exam: no rashes or lesions noted Neuro General: patient oriented x3 Extrem Right lower extremity: edema (No signs of infection, very slight weeping bullae venous stasis changes) Details: non-pitting and lower leg Left lower extremity: edema (mult weeping bullae; no signs of infection; venous stasis changes noted) Details: pitting Assessment & Plan Assessment & Plan (1) Bilateral edema of lower extremity: Code(s): R60.0 - Localized edema Plan: VSS, no signs of cellulitis. Recommended increasing Lasix to 60 mg daily for the next 3-4 days. I also wrapped the patient's left leg with gauze and then a compression Stalin bandage. Told her to try to elevate her legs above her heart for a few hours each day for the next few days and get her compression stockings back on. Patient has follow-up on 03/18, strongly advised keeping that appointment so she can follow up for this issue. Plan See above Coding Level of Care Code Est Pt Level 3 (48037) Diagnoses Bilateral edema of lower extremity R60.0
== END 2024-03-10 16:35 | disposition home or self-care (01) ==
PROVIDERS: PCP Internal Medicine; Visit Provider Physician Assistant
DX: R60.0 Localized edema (principal)
CPT/HCPCS: 99213

== ENCOUNTER 2024-07-23 09:26 | Outpatient (REF) | payer MEDICARE, OTHER, SELFPAY ==
[2024-07-23 11:16] LABS: MANUAL DIFF FLAG NO
[2024-07-23 11:20] LABS: Basophils Percent Auto 0.4 % (0-2); Eosinophils Absolute Auto 0.2 X10*3/uL (0.0-0.4); Hematocrit 38.4 % (37.0-47.0); Hemoglobin 12.7 g/dl (12.0-16.0); Imm Gran Abs Auto 0.02 X10*3/uL (0.00-0.03); Imm Gran Pct Auto 0.3 % (0.0-0.4); Lymphocytes Absolute Auto 1.1 X10*3/uL (1.2-4.9); Lymphocytes Percent Auto 15.5 % (20-40); Mean Corpuscular HGB Conc 33.1 g/dl (31.0-35.0); Mean Corpuscular Hemoglobin 31.9 pg (27.0-33.0); Mean Corpuscular Volume 96.5 fL (80.0-98.0); Mean Platelet Volume 11.3 fL (9.4-12.3); Monocytes Absolute Auto 0.7 X10*3/uL (0.1-1.2); Monocytes Percent Auto 9.6 % (2-11); Neutrophils Absolute Auto 4.8 x10*3/uL (2.0-8.3); Neutrophils Percent Auto 71.2 % (45-73); Platelet Count 260 X10*3/uL (160-400); Red Blood Count 3.98 X10*6/uL (4.20-5.50); Red Cell Distribution Width 11.9 % (11.0-16.0); White Blood Count 6.8 X10*3/uL (4.8-10.8)
[2024-07-23 11:45] LABS: Anion Gap 15 (12-20); Blood Urea Nitrogen 24 mg/dL (9-16); Carbon Dioxide 26 mmol/L (22-29); Chloride 106 mmol/L (96-108); Estimated Glomerular Filt Rate 46; Iron 122 mcg/dL (30-160); Percent Iron Saturation 37 % (15-50); Phosphorus 3.7 mg/dL (2.7-4.5); Potassium 4.6 mmol/L (3.3-5.1); Sodium 142 mmol/L (135-145); Total Iron Binding Capacity 331 mcg/dL (228-428); Unsaturated Iron Binding 209 ug/dL
[2024-07-23 11:46] LABS: Parathyroid Hormone Intact 57.9 pg/mL (8.7-77.1)
[2024-07-23 12:04] LABS: Vitamin D 25-OH Total 40.5 ng/mL (>30)
== END 2024-07-23 09:27 | disposition home or self-care (01) ==
LOC: HO.HMGCLDS 09:26
PROVIDERS: PCP Internal Medicine; Visit Provider Student in an Organized Health Care Education/Training Program
DX: N18.30 Chronic kidney disease, stage 3 unspecified (principal); I12.9 Hypertensive chronic kidney disease with stage 1 through stage 4 chronic kidney disease, or unspecified chronic kidney disease; E83.52 Hypercalcemia
CPT/HCPCS: 36415; 80051; 82306; 82310; 82565; 83540; 83970; 84100; 84520; 85025

== ENCOUNTER 2024-09-01 12:32 | Outpatient (AMB) | payer MEDICARE, OTHER, SELFPAY ==
--- NOTE | 2024-09-01 12:35 | MHC.PC.OV ---
Vital Signs 09/01/24 12:36 Height 5 ft 4 in Weight 255 lb BMI 43.8 BP 122/64 Blood Pressure Location Lt brachial Position Sitting Pulse 73 Pulse Source Pulse Oximeter Pulse Oximetry (%) 96 Oxygen Delivery Method Room Air Intake Visit Reasons: 6 month follow up Intake Note: Pt is here today for 6 months follow up visit. Allergies fentanyl Adverse Reaction (Intermediate, Verified 09/01/24 12:38) she was told by surgeon that she had medication reaction Medication List - Last Reconciled 09/01/24 by Kajal White MD albuterol sulfate 90 mcg/actuation inhalation amlodipine 10 mg PO DAILY comp.stocking,knee,long,medium As directed 30-40mmhg compr.stocking,knee,long,x-lrg 30-40 mmHg compression fluticasone furoate-vilanterol 100-25 mcg/dose inhalation furosemide 40 mg PO DAILY labetalol 300 mg PO BID montelukast 10 mg PO DAILY pantoprazole 40 mg PO DAILY triamcinolone acetonide 0.1% 1 appl topical DAILY valsartan 320 mg PO DAILY Tobacco use date assessed: 09/01/24 Fall risk assessment: No Falls in past year Last assessed Fall Risk: 09/01/24 Dental Screening Dental Screen Date: 02/11/24 HPI 6 month follow up HPI Details Pt presents for f/u HTN, CKD 3, chronic lower extremity edema, morbid obesity, chronic asthma. [facility] Medical History (Updated 09/01/24 @ 13:32 by Kajal White MD) Gall stones Abdominal pain Annual physical exam Asthma Chest pain Mitral regurgitation Osteoporosis History of mammogram Venous insufficiency Martínez's esophagus CKD (chronic kidney disease), stage III Heart murmur HTN (hypertension) Surgical History (Updated 02/11/24 @ 10:42 by Kajal White MD) S/P total abdominal hysterectomy H/O colonoscopy H/O hysterectomy with unilateral oophorectomy Family History Father No problems noted. Mother CVD (cardiovascular disease) Social History Housing: Condominium Alcohol intake: never Patient Tobacco Use Status: Former Tobacco user Tobacco use type: Cigarette Years Smoked: 8 years e-Cigarette/Vaping Use: Never Used service: No Current occupational status: retired Cognitive needs: No Hearing needs: No Vision needs: Yes Questionnaire PHQ-9 Over the last 2 weeks, how often have you been bothered by any of the following problems? 1. Little interest or pleasure in doing things: not at all 2. Feeling down, depressed, or hopeless: not at all 3. Trouble falling or staying asleep, or sleeping too much: not at all 4. Feeling tired or having little energy: nearly every day 5. Poor appetite or overeating: nearly every day 6. Feeling bad about yourself - or that you are a failure or have let yourself or your family down: not at all 7. Trouble concentrating on things, such as reading the newspaper or watching television: not at all 8. Moving or speaking so slowly that other people could have noticed. Or the opposite - being so fidgety or restless that you have been moving around a lot more than usual: not at all 9. Thoughts that you would be better off or of hurting yourself in some way: not at all Total score: 6 Depression Screening Interpretation: Negative Depression Screening Done: Yes Source: Developed by Drs. Edward Mccormick, Jemima Parrish, Long Beltre and colleagues, with an educational delfin from [employer]. Thrive Questionnaire Date Thrive assessed: 02/11/24 I am a: Patient What is your living situation today?: I have a steady place to live Within the past 12 months, did the food you bought not last and you didn't have the money to get more?: Never true Within the past 12 months, did you worry whether your food would run out before you got money to buy more?: Never true Do you have trouble paying for medicines?: No Do you have trouble getting transportation to medical appointments?: No Do you have trouble paying your heating and electricity bill?: No Do you have trouble taking care of your child, family member or friend?: No Do you have trouble with day-to-day activities such as bathing, preparing meals, shopping, managing finances, etc.?: No Are you currently unemployed and looking for a job?: No Are you interested in more education?: No Please select the resources that you would like help with: None Currently or been in a relationship where the following occur: I choose not to answer THRIVE Score: 0 AUDIT C Alcohol Use Questionnaire (AUDIT-C) 1. How often do you have a drink containing alcohol?: Never Total Score: 0 RITU-7 AMB Questionnaire RITU-7 Date RITU - 7 assessed: 02/11/24 Feeling nervous, anxious, or on edge: 0 = Not at all Not being able to stop or control worryin = Not at all Worrying too much about different things: 0 = Not at all Trouble relaxin = Not at all Being so restless that it is hard to sit still: 0 = Not at all Becoming easily annoyed or irritable: 0 = Not at all Feeling afraid as if something awful might happen: 0 = Not at all Total RITU-7 score (0-4 normal; 5-9 mild; 10-14 moderate; 15-21 severe): 0 Source: Developed by Drs. Edward Mccormick, Jemima Parrish, Long Beltre and colleagues, with an educational delfin from [employer]. Review of Systems Const All systems reviewed & are unremarkable except as noted in HPI and below Eyes Reports no additional complaints ENT Reports no additional complaints Card Reports no additional complaints Resp Reports no additional complaints GI Reports no additional complaints Reports no additional complaints Physical exam (Primary Care) Vital Signs: Last Vital Signs Pulse 73 09/01/24 12:36 BP 122/64 09/01/24 12:36 Pulse Ox 96 09/01/24 12:36 Oxygen Delivery Method Room Air 09/01/24 12:36 BMI result Body Mass Index 43.8 Tobacco/Smoking Status: Tobacco use Status Tobacco use date assessed 09/01/24 09/01/24 12:40 Patient Tobacco Use Status Former Tobacco user 09/01/24 12:38 Tobacco use type Cigarette 09/01/24 12:38 e-Cigarette/Vaping Use Never Used 09/01/24 12:38 PHQ-9: PHQ-9 Score PHQ-9: Total score 6 09/01/24 12:40 Depression Screening Interpretation: Negative Thrive Assessment: Date of Thrive Assessment Date Thrive assessed 02/11/24 09/01/24 12:38 Currently or been in a relationship where the following occur: I choose not to answer Const General: no acute distress HENMT Head: Yes normal to inspection Eyes General: appearance normal, both eyes and all related structures Resp Effort & Inspection: normal respiratory effort Auscultation: clear to auscultation bilaterally Cardio Rhythm: regular rhythm Heart sounds: S1 normal heart sound present and S2 normal heart sound present GI Inspection: Yes normal to inspection Palpation (GI): Soft to palpation Percussion: Yes normal to percussion Auscultation: normal bowel sounds Extrem Other: 4+ lymphedema bilateral Coding Level of Care Code Est Pt Level 4 (92399) Diagnoses HTN (hypertension) I10 CKD (chronic kidney disease), stage III N18.30 Knee pain, bilateral M25.561; M25.562 Osteoporosis M81.0 Assessment & Plan Assessment & Plan (1) HTN (hypertension): Code(s): I10 - Essential (primary) hypertension Category: Medical Plan: Continue current medications (2) CKD (chronic kidney disease), stage III: 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 Roberts 2019, patient never took medications, 06/2024 T score -3.1 femoral neck, patient declined treatment we will continue vitamin-D Code(s): M81.0 - Age-related osteoporosis without current pathological fracture Category: Medical Plan: Continue vitamin-D increase physical activity Orders: Orders Comprehensive [place]. Panel Fast 6 Months E66.01 - Morbid (severe) obesity due to excess calories, I10 - Essential (primary) hypertension, I34.0 - Nonrheumatic mitral (valve) insufficiency, N18.30 - Chronic kidney disease, stage 3 unspecified Complete Blood Count Auto Diff 6 Months E66.01 - Morbid (severe) obesity due to excess calories, I10 - Essential (primary) hypertension, I34.0 - Nonrheumatic mitral (valve) insufficiency, N18.30 - Chronic kidney disease, stage 3 unspecified Lipid Panel 6 Months E66.01 - Morbid (severe) obesity due to excess calories, I10 - Essential (primary) hypertension, I34.0 - Nonrheumatic mitral (valve) insufficiency, N18.30 - Chronic kidney disease, stage 3 unspecified Medications: New walker As directed 1 ea 0RF M25.561 - Pain in right knee, M25.562 - Pain in left knee
[2024-09-01 12:36] VITALS: BP 122/64; PULSE 73; O2SAT 96; BMI 43.8
== END 2024-09-01 13:34 | disposition home or self-care (01) ==
PROVIDERS: PCP Internal Medicine; Visit Provider Internal Medicine
DX: I10 Essential (primary) hypertension (principal); N18.30 Chronic kidney disease, stage 3 unspecified; M25.561 Pain in right knee; M25.562 Pain in left knee; M81.0 Age-related osteoporosis without current pathological fracture

== ENCOUNTER → 2024-09-01 12:32 | Outpatient (BNVA) | payer MEDICARE, OTHER, SELFPAY | PROVIDERS: PCP Internal Medicine; Visit Provider Internal Medicine | DX: I12.9 Hypertensive chronic kidney disease with stage 1 through stage 4 chronic kidney disease, or unspecified chronic kidney disease (principal); N18.30 Chronic kidney disease, stage 3 unspecified; M25.561 Pain in right knee; M25.562 Pain in left knee; M81.0 Age-related osteoporosis without current pathological fracture | CPT/HCPCS: 96127; 99212 ==

== ENCOUNTER 2025-02-18 08:59 | Outpatient (REF) | payer MEDICARE, OTHER, SELFPAY ==
[2025-02-18 11:43] LABS: MANUAL DIFF FLAG NO
[2025-02-18 11:56] LABS: Basophils Percent Auto 0.4 % (0-2); Eosinophils Absolute Auto 0.2 X10*3/uL (0.0-0.4); Eosinophils Percent Auto 2.6 % (0-4); Hematocrit 39.1 % (37.0-47.0); Hemoglobin 12.6 g/dl (12.0-16.0); Imm Gran Abs Auto 0.03 X10*3/uL (0.00-0.03); Imm Gran Pct Auto 0.4 % (0.0-0.4); Lymphocytes Percent Auto 14.7 % (20-40); Mean Corpuscular HGB Conc 32.2 g/dl (31.0-35.0); Mean Corpuscular Hemoglobin 31.2 pg (27.0-33.0); Mean Corpuscular Volume 96.8 fL (80.0-98.0); Mean Platelet Volume 11.8 fL (9.4-12.3); Monocytes Absolute Auto 0.7 X10*3/uL (0.1-1.2); Monocytes Percent Auto 10.2 % (2-11); Neutrophils Percent Auto 71.7 % (45-73); Platelet Count 244 X10*3/uL (160-400); Red Blood Count 4.04 X10*6/uL (4.20-5.50); Red Cell Distribution Width 12.7 % (11.0-16.0)
[2025-02-18 12:21] LABS: Alanine Aminotransferase 32 U/L (0-31); Albumin Level 4.6 g/dL (3.5-5.0); Alkaline Phosphatase 75 U/L (39-117); Anion Gap 14 (12-20); Aspartate Amino Transferase 25 U/L (5-31); Bilirubin Total 0.8 mg/dL (0.0-1.0); Blood Urea Nitrogen 26 mg/dL (9-16); Calcium 10.1 mg/dL (8.4-10.2); Carbon Dioxide 27 mmol/L (22-29); Chloride 107 mmol/L (96-108); Cholesterol 184 mg/dL (<200); Estimated Glomerular Filt Rate 39; Glucose Fasting 90 mg/dL (60-99); HDL Cholesterol 55 mg/dL (>40); LDL Cholesterol Calculated 117 mg/dL (<100); Potassium 4.7 mmol/L (3.3-5.1); Sodium 143 mmol/L (135-145); Total Protein 7.2 g/dL (6.5-8.0); Triglycerides 60 mg/dL (<150)
== END 2025-02-18 09:00 | disposition home or self-care (01) ==
LOC: HO.HMGCLDS 08:59
PROVIDERS: PCP Internal Medicine; Visit Provider Internal Medicine
DX: I10 Essential (primary) hypertension (principal); N18.30 Chronic kidney disease, stage 3 unspecified; I34.0 Nonrheumatic mitral (valve) insufficiency; E66.01 Morbid (severe) obesity due to excess calories
CPT/HCPCS: 36415; 80053; 80061; 85025

== ENCOUNTER 2025-03-15 11:41 | Outpatient (AMB) | payer MEDICARE, OTHER, SELFPAY ==
[2025-03-15 11:43] VITALS: BP 120/70; PULSE 65; RESP 20; TEMP 36.8; O2SAT 96; BMI 45.1
--- NOTE | 2025-03-15 11:43 | A.OFFPC_ITS ---
Vital Signs 03/15/25 11:43 Height 5 ft 4 in Weight 263 lb BMI 45.1 BP 120/70 Blood Pressure Location Rt brachial Position Sitting Respiration 20 Pulse 65 Pulse Source Pulse Oximeter Temp 98.2 F Temp Source Oral Pulse Oximetry (%) 96 Oxygen Delivery Method Room Air Intake Visit Reasons: 6m follow up Intake Note: Pt is here today for 6 months follow up visit on labs. Allergies fentanyl Adverse Reaction (Intermediate, Verified 03/15/25 11:45) she was told by surgeon that she had medication reaction Medication List - Last Reconciled 03/15/25 by Kajal White MD albuterol sulfate 90 mcg/actuation inhalation amlodipine 10 mg PO DAILY comp.stocking,knee,long,medium As directed 30-40mmhg compr.stocking,knee,long,x-lrg 30-40 mmHg compression fluticasone furoate-vilanterol 100-25 mcg/dose inhalation furosemide 40 mg PO DAILY labetalol 300 mg PO BID montelukast 10 mg PO DAILY pantoprazole 40 mg PO DAILY triamcinolone acetonide 0.1% 1 appl topical DAILY valsartan 320 mg PO DAILY walker As directed Tobacco use date assessed: 03/15/25 Fall risk assessment: No Falls in past year Last assessed Fall Risk: 03/15/25 Dental Screening Dental Screen Date: 03/15/25 Did you have a dental visit in the last 12 months?: Yes Did you have a dental problem in the last 6 months where you did not have access to dental care?: No Was dental information given to patient?: Patient has dentist HPI 6m follow up HPI Details Pt presents for f/u HTN, CKD 3, morbid obesity. Patient reports eating lateral highly processed foods like chips hot dogs, processed meats and gaining 20 lb since the last visit. Patient reports worsening lower extremities edema and erythematous rash. Patient has been using triamcinolone cream without improvement. Patient complains of chronic bilateral knee pain and stiffness worse when walking. X-ray last year showed advanced osteoarthritis in the right knee and mild to moderate in the left. [facility] Medical History Gall stones Abdominal pain Annual physical exam Asthma Chest pain Mitral regurgitation Osteoporosis History of mammogram Venous insufficiency Martínez's esophagus CKD (chronic kidney disease), stage III Heart murmur HTN (hypertension) Surgical History S/P total abdominal hysterectomy H/O colonoscopy H/O hysterectomy with unilateral oophorectomy Family History Father No problems noted. Mother CVD (cardiovascular disease) [facility] Alcohol intake: never Patient Tobacco Use Status: Former Tobacco user Tobacco use type: Cigarette Years Smoked: 8 years e-Cigarette/Vaping Use: Never Used Second Hand Smoke Exposure: No service: No Current occupational status: retired Cognitive needs: No Hearing needs: No Vision needs: Yes Questionnaire PHQ-9 Over the last 2 weeks, how often have you been bothered by any of the following problems? 1. Little interest or pleasure in doing things: not at all 2. Feeling down, depressed, or hopeless: not at all 3. Trouble falling or staying asleep, or sleeping too much: not at all 4. Feeling tired or having little energy: nearly every day 5. Poor appetite or overeating: nearly every day 6. Feeling bad about yourself - or that you are a failure or have let yourself or your family down: not at all 7. Trouble concentrating on things, such as reading the newspaper or watching television: not at all 8. Moving or speaking so slowly that other people could have noticed. Or the opposite - being so fidgety or restless that you have been moving around a lot more than usual: not at all 9. Thoughts that you would be better off or of hurting yourself in some way: not at all Total score: 6 Depression Screening Interpretation: Negative Depression Screening Done: Yes 17868 - PHQ-9 Billing: Yes Source: Developed by Drs. Edward Mccormick, Jemima Parrish, Long Beltre and colleagues, with an educational delfin from [employer]. Thrive Questionnaire Date Thrive assessed: 03/15/25 I am a: Patient What is your living situation today?: I have a steady place to live Within the past 12 months, did the food you bought not last and you didn't have the money to get more?: I choose not to answer this question Within the past 12 months, did you worry whether your food would run out before you got money to buy more?: I choose not to answer this question Do you have trouble paying for medicines?: No Do you have trouble getting transportation to medical appointments?: No Do you have trouble paying your heating and electricity bill?: No Do you have trouble taking care of your child, family member or friend?: No Do you have trouble with day-to-day activities such as bathing, preparing meals, shopping, managing finances, etc.?: No Are you currently unemployed and looking for a job?: No Are you interested in more education?: No Please select the resources that you would like help with: None Currently or been in a relationship where the following occur: I choose not to answer THRIVE Score: 0 AUDIT C Alcohol Use Questionnaire (AUDIT-C) 1. How often do you have a drink containing alcohol?: Never 3. How often do you have six or more drinks on one occasion?: Never Total Score: 0 RITU-7 AMB Questionnaire RITU-7 Date RITU - 7 assessed: 03/15/25 Feeling nervous, anxious, or on edge: 0 = Not at all Not being able to stop or control worryin = Not at all Worrying too much about different things: 0 = Not at all Trouble relaxin = Not at all Being so restless that it is hard to sit still: 0 = Not at all Becoming easily annoyed or irritable: 0 = Not at all Feeling afraid as if something awful might happen: 0 = Not at all Total RITU-7 score (0-4 normal; 5-9 mild; 10-14 moderate; 15-21 severe): 0 Source: Developed by Drs. Edward Mccormick, Jemima Parrish, Long Beltre and colleagues, with an educational delfin from [employer]. RITU-7 Assessment Billing RITU-7 Assessment Tool: RITU-7 Assessment 50934 Review of Systems Const All systems reviewed & are unremarkable except as noted in HPI and below Eyes Reports no additional complaints ENT Reports no additional complaints Card Reports no additional complaints Resp Reports no additional complaints GI Reports no additional complaints Reports no additional complaints Physical exam (Primary Care) Vital Signs: Last Vital Signs Temp 98.2 F 03/15/25 11:43 Pulse 65 03/15/25 11:43 Resp 20 03/15/25 11:43 BP 120/70 03/15/25 11:43 Pulse Ox 96 03/15/25 11:43 Oxygen Delivery Method Room Air 03/15/25 11:43 BMI result Body Mass Index 45.1 Tobacco/Smoking Status: Tobacco use Status Tobacco use date assessed 03/15/25 03/15/25 11:48 Patient Tobacco Use Status Former Tobacco user 03/15/25 11:48 Tobacco use type Cigarette 03/15/25 11:48 e-Cigarette/Vaping Use Never Used 03/15/25 11:48 PHQ-9: PHQ-9 Score PHQ-9: Total score 6 03/15/25 11:48 Depression Screening Interpretation: Negative Thrive Assessment: Date of Thrive Assessment Date Thrive assessed 03/15/25 03/15/25 11:48 Currently or been in a relationship where the following occur: I choose not to answer Const General: no acute distress HENMT Head: Yes normal to inspection Face and sinus: Yes normal facial exam Eyes General: appearance normal, both eyes and all related structures Neck Neck: Yes no lymphadenopathy and Yes supple Resp Effort & Inspection: normal respiratory effort Auscultation: clear to auscultation bilaterally Cardio Rhythm: regular rhythm Heart sounds: S1 normal heart sound present and S2 normal heart sound present GI Inspection: Yes normal to inspection Palpation (GI): Soft to palpation Percussion: Yes normal to percussion Auscultation: normal bowel sounds Extrem Other: 4+ nonpitting edema and lymphedema, bilaterally erythematous papular rash on anterior shins, no ulcers Coding Level of Care Code Est Pt Level 4 (96438) Complex EM visit Add On G2211 Diagnoses HTN (hypertension) I10 Morbid obesity E66.01 CKD (chronic kidney disease), stage III N18.30 Rash R21 Knee pain, bilateral M25.561; M25.562 Additional Codes RITU-7 Assessment Billing - RITU-7 Assessment Tool: RITU-7 Assessment 34881 ([id number]) PHQ-9 - 10352 - PHQ-9 Billing: Yes ([id number]) Assessment & Plan Assessment & Plan (1) HTN (hypertension): Code(s): I10 - Essential (primary) hypertension Category: Medical Plan: cont meds (2) Morbid obesity: Comment: Patient declined taking GLP 1 agonist 08/2024 Code(s): E66.01 - Morbid (severe) obesity due to excess calories Category: Medical Plan: decrease caloric intake, increase physical activity and weight loss discussed with the patient. She is going try weight watchers program which she was successful with in the past. 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 Code(s): N18.30 - Chronic kidney disease, stage 3 unspecified Category: Medical Plan: f/u with nephrology, avoid nephrotoxins monitor renal function (4) Rash: Comment: He has a chronic venous stasis and lymphedema Code(s): R21 - Rash and other nonspecific skin eruption Category: Medical Plan: For worsening chronic venostasis rash doxycycline for 10 days is prescribed .patient was advised not to use topical steroid and will be referred to Dermatology (5) Knee pain, bilateral: Code(s): M25.561 - Pain in right knee; M25.562 - Pain in left knee Category: Medical Plan: For chronic bilateral knee pain she will be referred to the orthopedic surgeon for cortisone injection Orders: Orders Comprehensive [place]. Panel Fast 6 Months E66.01 - Morbid (severe) obesity due to excess calories, I10 - Essential (primary) hypertension, N18.30 - Chronic kidney disease, stage 3 unspecified Complete Blood Count Auto Diff 6 Months E66.01 - Morbid (severe) obesity due to excess calories, I10 - Essential (primary) hypertension, N18.30 - Chronic kidney disease, stage 3 unspecified Lipid Panel 6 Months E66.01 - Morbid (severe) obesity due to excess calories, I10 - Essential (primary) hypertension, N18.30 - Chronic kidney disease, stage 3 unspecified Referrals Orthopedics Referral M25.561 - Pain in right knee, M25.562 - Pain in left knee Dermatology Referral R21 - Rash and other nonspecific skin eruption Medications: New doxycycline hyclate 100 mg PO BID 20 tabs 0RF
--- OUTSIDE RECORDS SUMMARY | 2025-03-15 13:57 | XMS_ITS | Patient Health Record ---
[facility] Organization [facility] Address [address] [facility] [place] [address] Care Team Providers Care Biofuels Technology Development Manager Name Role Phone Kajal White MD Primary Care Provider Unavaila Cari Yi Unavailable [phone] Allergies Allergen (clinical drug ingredient) Drug/Non Drug Allergy documented on EMR Reaction Allergy Type Onset Date Status ibuprofen Advil Martínez's Disease Drug Allergy Active Aleve Martínez's Disease Drug Allergy Active aspirin Aspirin Martínez's Disease Drug Allergy Active hydrochlorothiazide Hydrochlorothiazide photodermatiti s Drug Allergy Active Motrin Martínez's Disease Drug Allergy Active Reason For Referral No Information Medications Medication SIG (Take, Route, Frequency, Duration) Notes Start Date End Date Status Keflex 500 MG 1 capsule Orally briana ry 12 hrs for 10 day(s) 09/29/2019 Not-Taking Furosemide 40 MG 1 tablet Orally Once a day for 30 day(s) Active amLODIPine Besylate 10 MG 1 tablet Orall y Once a day for 30 day(s) Active Medrol heidy 4mg as directed orally a s directed for 6 days 12/18/2022 Not-Taking Night Splint AFO - L1930 as directed 05/30/2019 Not-Taking Labetalol HCl 300 MG 1 tablet Orally Twi ce a day for 30 day(s) Active Pantoprazole Sodium 40 MG 1 tablet Orall y Once a day for 30 day(s) Active Valsartan 320 MG 1 tablet Orally Once a day for 30 day(s) Active Breo Ellipta 100-25 MCG/INH 1 puff Inhalation Once a day Active Irbesartan 300 MG 1 tablet Orally Once a day for 30 day(s) Not-Taking Kerasal 5-10 % 1 application Externally Once a day 07/28/2024 Active Immunizations Vaccine Route Administration Date Status Comme nts COVID-19 Moderna Vaccine Unknown 09/10/2021 Administered 1st 01/07/21 2nd 02/04/21 Social History Tobacco Use: Social History Observation Description Date Details (start date - stop date) Never Smoker NA - NA Alcohol Screen Question Answer Notes Did you have a drink containing alcohol in the p ast year? No Points 0 Interpretation Negative Tobacco use other than smoking: Question Answer Notes Are you an other tobacco user? No Tobacco Control (Standard) Question Answer Notes Tobacco use: Nonsmoker Problems Problem Type SNOMED Code ICD Code Onset Dates Problem Status W/U Status Risk Notes Problem 9916081 Arthritis (M19.90) Active confirmed Problem 324099821 Arthritis of ankle (M19.079) Active confirmed Vital Signs Blood pressure diastolic 60 mm Hg 02/09/2025 Height 5ft4in in 02/09/2025 Blood pressure systolic 135 mm Hg 02/09/2025 Weight 260 lbs 02/09/2025 BMI 44.62 kg/m2 02/09/2025 Procedures Procedure Date Ordered Date Performed Result Body Sit e 05702-RMAZQAW NAIL, 6 OR MORE 04/21/2024 N/A 00942, J0702- INJECT or DRAI N, JOINT/BURSA 04/21/2024 N/A 67645-DGAEEJO NAIL, 6 OR MORE 07/28/2024 N/A 27058-ZJWXQER NAIL, 6 OR MORE 11/03/2024 N/A 24243-Mzoqiazw Plate 11/03/2024 N/A 83776-URRAPNZ NAIL, 6 OR MORE 02/09/2025 N/A 78207, X4146-WUDTD/INJECT, JOINT/BURSA 02/09/2025 N/A Encounters Encounter Location Date Provider Diagnosis [facility] [place] [address] [place] [address] 04/21/2024 Cari Black Arthritis M19.90 ; Arthralgia of left ankle M25.572 ; Arthritis of ankle M19.079 ; Tinea unguium B35.1 ; Pain in right toe(s) M79.674 ; Pain in left toe(s) M79.675 and Pain in left foot M79.[address] [address] 07/28/2024 Cari Black Arthralgia of left ankle M25.572 ; Xerosis of skin L85.3 ; Arthritis M19.90 ; Arthritis of ankle M19.079 ; Tinea unguium B35.1 ; Pain in right toe(s) M79.674 and Pain in left toe(s) M79.[address] [address] 11/03/2024 Cari Black Arthralgia of left ankle M25.572 ; Xerosis of skin L85.3 ; Arthritis M19.90 ; Arthritis of ankle M19.079 ; Tinea unguium B35.1 ; Pain in right toe(s) M79.674 ; Pain in left toe(s) M79.675 and Ingrown nail L60.[address] [address] 02/09/2025 Cari Black Arthralgia of left ankle M25.572 ; Arthritis M19.90 ; Arthritis of ankle M19.079 ; Tinea unguium B35.1 ; Pain in right toe(s) M79.674 and Pain in left toe(s) M79.675 Assessments Encounter Date Diagnosis (ICD Code) Assessment Notes Treatment Notes Treatment Clinical Notes Section Notes 04/21/2024 Arthritis (ICD-10 - M19.90) 07/28/2024 Xerosis of skin (ICD-10 - L85.3) 07/28/2024 Arthralgia of left ankle (ICD-10 - M25.572) Resistant to previous conservative treatment Patient Educated with: INJECTIONTHERA PY.pdf (INJECTIONTHER APY.pdf) 11/03/2024 Xerosis of skin (ICD-10 - L85.3) 11/03/2024 Arthralgia of left ankle (ICD-10 - M25.572) Response to treatment - Improvement 02/09/2025 Arthritis (ICD-10 - M19.90) 02/09/2025 Arthralgia of left ankle (ICD-10 - M25.572) Recurrent Patient Educated with: FLAVIA THERAPY.pdf (RICE THERAPY.pdf) 02/09/2025 Arthritis of ankle (ICD-10 - M19.079) 11/03/2024 Arthritis (ICD-10 - M19.90) 07/28/2024 Arthritis (ICD-10 - M19.90) 04/21/2024 Arthralgia of left ankle (ICD-10 - M25.572) Patient Educated with: INJECTIONTHERA PY.pdf (INJECTIONTHER APY.pdf) 04/21/2024 Arthritis of ankle (ICD-10 - M19.079) 07/28/2024 Arthritis of ankle (ICD-10 - M19.079) 11/03/2024 Arthritis of ankle (ICD-10 - M19.079) 02/09/2025 Tinea unguium (ICD-10 - B35.1) 02/09/2025 Pain in right toe(s) (ICD-10 - M79.674) 11/03/2024 Tinea unguium (ICD-10 - B35.1) 07/28/2024 Tinea unguium (ICD-10 - B35.1) 04/21/2024 Tinea unguium (ICD-10 - B35.1) 04/21/2024 Pain in right toe(s) (ICD-10 - M79.674) 07/28/2024 Pain in right toe(s) (ICD-10 - M79.674) 11/03/2024 Pain in right toe(s) (ICD-10 - M79.674) 02/09/2025 Pain in left toe(s) (ICD-10 - M79.675) 11/03/2024 Pain in left toe(s) (ICD-10 - M79.675) 07/28/2024 Pain in left toe(s) (ICD-10 - M79.675) 04/21/2024 Pain in left toe(s) (ICD-10 - M79.675) 04/21/2024 Pain in left foot (ICD-10 - M79.672) 11/03/2024 Ingrown nail (ICD-10 - L60.0) Plan Of Treatment Pending Test Test Name Order Date 67718-ONMAUHC NAIL, 6 OR MORE 01/29/2023 10504-YTQXCGS NAIL, 6 OR MORE 04/09/2023 37772-HKLPIEQ NAIL, 6 OR MORE 06/25/2023 25498-VNKOYIA NAIL, 6 OR MORE 10/01/2023 60674-SZHOBSR NAIL, 6 OR MORE 12/31/2023 38229-ALUXPKZ NAIL, 6 OR MORE 04/21/2024 59008-HFWUZBY NAIL, 6 OR MORE 07/28/2024 49872-SDZBMAM NAIL, 6 OR MORE 11/03/2024 30416-BNBSQQF NAIL, 6 OR MORE 02/09/2025 63674-JRRNUFD NAIL, 1-5 03/08/2020 90666-Dmvrfaid Plate 11/03/2024 72534-Dtwhjbuk Plate 10/01/2023 75015-IOG 09/29/2019 81348- Debride <25 sq cm 10/27/2019 99891- Debride <25 sq cm 11/24/2019 14959- Debride <25 sq cm 03/08/2020 70357-WZDOFKS SKIN/TISSUE 10/13/2019, J0702- INJECT or DRAIN, JOINT/BUR SA 06/25/2023, J0702- INJECT or DRAIN, JOINT/BUR SA 04/21/2024, J0702- INJECT or DRAIN, JOINT/BUR SA 01/29/2023, F2051-SCXDS/INJECT, JOINT/BURSA 0 02/09/202517164,K4312-JWQ TENDON SHEATH/LIGAMENT 1 Next Appt Details Provider Name:Cari Sepulveda , 05/11/2025 02:45:00 PM, [address] [place], [address], Insurance Providers Payer Name Payer Address Payer Phone Subscriber Number Group Number Insured Name Patient Relationship to Insured Coverage Start Date Coverage End Date Medicare National Govt [facility] [address] [place] [address] [id number] Annie Carcamo Self - patient is the insured 6 [facility] [address] [place] [id number] Annie Carcamo Self - patient is the insured Medical (General) History Medical History History ICD Code Arthritis asthma Back,Hip,and Knee pain Heart disease Hypertension Kidney disease Osteoporosis Poor circulation Reflux ( GERD) Sinus conditions Chicken pox Measles Mumps Barretts esophagus 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
== END 2025-03-15 12:33 | disposition home or self-care (01) ==
LOC: HO.HMCC 11:42
PROVIDERS: PCP Internal Medicine; Visit Provider Internal Medicine
DX: I12.9 Hypertensive chronic kidney disease with stage 1 through stage 4 chronic kidney disease, or unspecified chronic kidney disease (principal); N18.30 Chronic kidney disease, stage 3 unspecified; E66.01 Morbid (severe) obesity due to excess calories; Z68.42 Body mass index [BMI] 45.0-49.9, adult; R21 Rash and other nonspecific skin eruption; M25.561 Pain in right knee; M25.562 Pain in left knee

== ENCOUNTER → 2025-03-15 11:41 | Outpatient (BNVA) | payer MEDICARE, OTHER, SELFPAY | PROVIDERS: PCP Internal Medicine; Visit Provider Internal Medicine | DX: R21 Rash and other nonspecific skin eruption (principal); M25.561 Pain in right knee; M25.562 Pain in left knee; I12.9 Hypertensive chronic kidney disease with stage 1 through stage 4 chronic kidney disease, or unspecified chronic kidney disease; N18.30 Chronic kidney disease, stage 3 unspecified; E66.01 Morbid (severe) obesity due to excess calories; Z68.41 Body mass index [BMI] 40.0-44.9, adult; Z71.3 Dietary counseling and surveillance | CPT/HCPCS: 96127; 99212 ==

== ENCOUNTER 2025-05-18 08:08 | Outpatient (REF) | payer MEDICARE, OTHER, SELFPAY ==
--- NOTE | ~2025-05-18 | XR_ITS ---
Exam: X-ray, bilateral knees.XR KNEE 3 VIEWS BILATERAL TECHNIQUE: Three views lower extremity joint, bilateral knees INDICATION: Bilateral knee pain COMPARISON: None available. FINDINGS: RIGHT KNEE: There is severe narrowing of the medial compartment with subchondral sclerosis and moderate-sized marginal osteophytes. There are small to moderate sized marginal osteophytes along the lateral joint line and patellofemoral joint. Small joint effusion is noted. Moderate vascular calcifications are present. LEFT KNEE: There is moderate narrowing of the medial joint space and mild to moderate narrowing of the lateral joint space. There are tricompartmental marginal osteophytes, largest along the medial joint line. Small amount of synovial fluid is evident in the suprapatellar pouch. Mild atherosclerotic calcifications are present. XR/XR Knee Byron 3V IMPRESSION: Right knee: Severe osteoarthritis and joint effusion Left knee: Moderate osteoarthritis and borderline joint effusion. Electronically signed by: Raffy Banuelos MD 05/18/2025 11:39 AM EDT
== END 2025-05-18 08:09 | disposition home or self-care (01) ==
LOC: HO.HOSX 08:08
PROVIDERS: Visit Provider Orthopaedic Surgery
DX: M17.0 Bilateral primary osteoarthritis of knee (principal)
CPT/HCPCS: 73562; 99202

== ENCOUNTER 2025-05-18 10:45 | Outpatient (AMB) | payer MEDICARE, OTHER, SELFPAY ==
--- OUTSIDE RECORDS SUMMARY | 2025-05-02 09:39 | XMS_ITS | Continuity of Care Document ---
Author Organization [facility] Address [address] [place] [address] [address] [place] [address] Phone Care Team Providers Care Apprentice Jockey Name Role Phone Merritt GONZALEZ, ITALIA, Edward MANE Unavailable U navailable Procedures Procedure Date Office/Oupt E&M New Pt 60 Mins- CT & [place] Surgical Stockings Juxlite Knee 025 Duplex Scan-extrem Veins; Comp- CT & [place] Advance Directives Directive Yes / No Effective Date File Name No Information Encounters Encounter Description Practice Location Reason(s) For Visit Diagnoses Date Provider Providers Copied on Encounter [facility], [address] [place] [address] [address], [id number], [place] tel:[phone] [facility] No Information Merritt GONZALEZ, ALHAJI ECHAVARRIA. [address] [facility] [address], [place], [place], [id number] , [place]. tel:[phone] Office/Oupt E&M New Pt 60 Mins- CT & [place] [facility], [address] [place] [address] [address], [id number], tel:[phone] [facility] Hereditary lymphedemaCramp and spasmLocalized edemaPain in right legPain in left legPain in left lower legChronic venous hypertension (idiopathic) without complications of bilateral lower extremityRestle ss legs syndromeEssenti al (primary) hypertensionLym phedema, not elsewhere classifiedDisor sea of pigmentation, unspecified 5 Merritt GONZALEZ RVT, RPVI Robert. [address] [facility], [facility] [address], [place], [id number] , [place]. tel:[phone] Referring Provider: Cl GANDHI, [address] [place], [address]. tel:[phone] [facility], [address] [facility] [address], [place], [id number], [place] tel:[phone] [facility] Chronic venous hypertension (idiopathic) with other complications of bilateral lower extremity 5 Merritt GONZALEZ RVT, ALHAJI Leon. [address] [facility], [facility] [address], [place], [id number] , [place]. tel:[phone] Referring Provider: Cl GANDHI, [facility] [address] [place], [address]. tel:[phone] Family History Family Member Type Diagnosis Age At Onset No Information Payers Payer name Insurance type Covered alliance party ID Authoriza tion(s) Medicare NOR[place]ERT[place] QUEEN [id number] [facility] CI [id number] Social History Type Description Quantity Date Captured Comments Sex Female Smoking Status No Information Chief Complaint And Reason For Visit No Information Reason For Referral Reason For Referral No Information Plan Of Treatment Date Type Action Status Goal Diet education completed Referral Ordered: Weight management: Referral to physician timeframe: 3 Months (related to Body mass index (BMI) 45.0-49.9, adult) ordered Appointment Annie Carcamo BOOKED Appointment Annie Carcamo BOOKED Appointment Annie Carcamo BOOKED Appointment Annie Carcamo BOOKED Appointment Annie Carcamo BOOKED Appointment Annie Carcamo BOOKED Appointment Annie Carcamo BOOKED Appointment Annie Carcamo BOOKED Appointment Annie Carcamo BOOKED Appointment Annie Carcamo BOOKED Appointment Annie Carcamo BOOKED Appointment Annie Carcamo BOOKED Appointment Annie Carcamo BOOKED Appointment Annie Carcamo BOOKED Appointment Annie Carcamo BOOKED Appointment Annie Carcamo BOOKED History Of Present Illness Encounter Date Complaint History Of Prese nt Illness No Information Functional Status Date Functional Assessmen t No Information Instructions Date Instruction Additional Infor mation Giving Encouragement to exercise Related to Body mass index (BMI) 45.0-49.9, adult Lifestyle education Related to B kayleen mass index (BMI) 45.0-49.9, adult Patient education booklet given Related to Chronic venous hypertension (idiopathic) without complications of bilateral lower extremity Pre and post instruc tions reviewed and provided Related to Chronic venous hypertension (idiopathic) without complications of bilateral lower extremity Diet education Related to Body mass index (BMI) 45.0-49.9, adult Assessments Type Assessment Date No Information Patient Care Teams Name Effective Dates (start - stop) Status Members No Information
--- NOTE | 2025-05-18 10:54 | A.OFFVIS_ITS ---
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 She describes her pains as sharp in nature. She has failed the last 3 months of conservative treatment which has included Tylenol, anti-inflammatory medicines, using a walker, physical therapy exercises and a home exercise program. At this point her knee pains are interfering with her activities of daily living and her ability to sleep well through the night. The patient has had cortisone injections in the past which gave her minimal relief. The most recent injection was performed by another provider. Allergies NSAIDS (Non-Steroidal Anti-Inflamma Adverse Reaction (Severe, Verified 05/18/25 11:06) ulcers fentanyl Adverse Reaction (Intermediate, Verified 05/18/25 11:04) she was told by surgeon that she had medication reaction Medication List - Last Reconciled 05/18/25 by Edward Roger MD acetaminophen ER (Tylenol Arthritis Pain) 1,300 mg PO Q8H albuterol sulfate 90 mcg/actuation inhalation amlodipine 10 mg PO DAILY comp.stocking,knee,long,medium As directed 30-40mmhg compr.stocking,knee,long,x-lrg 30-40 mmHg compression doxycycline hyclate 100 mg PO BID furosemide 40 mg PO DAILY labetalol 300 mg PO BID montelukast 10 mg PO DAILY pantoprazole 40 mg PO DAILY valsartan 320 mg PO DAILY walker As directed [facility] Medical History Gall stones Abdominal pain Annual physical exam Asthma Chest pain Mitral regurgitation Osteoporosis History of mammogram Venous insufficiency Martínez's esophagus CKD (chronic kidney disease), stage III Heart murmur HTN (hypertension) Surgical History S/P total abdominal hysterectomy H/O colonoscopy H/O hysterectomy with unilateral oophorectomy Family History Father No problems noted. Mother CVD (cardiovascular disease) Social History Housing: Condominium Alcohol intake: never Patient Tobacco Use Status: Former Tobacco user Tobacco use type: Cigarette Years Smoked: 8 years e-Cigarette/Vaping Use: Never Used Second Hand Smoke Exposure: No service: No Current occupational status: retired Cognitive needs: No Hearing needs: No Vision needs: Yes Physical Exam Vital Signs: BMI result Body Mass Index 43.3 Const Other: Well-nourished well-developed very friendly female awake alert and oriented x3 in no acute distress Extrem Other: Bilateral lower extremity examination shows good capillary refill, no skin lesions noted, normal sensation light touch Bilateral knee examination shows minimal effusions, palpable crepitus with range of motion, pain with range motion, no instability Results Reviewed Results Reviewed: X-rays of the patient's right knee show severe joint space narrowing, subchondral sclerosis, no acute bony abnormalities X-rays of the patient's left knee show moderate joint space narrowing, subchondral sclerosis, no acute bony abnormalities Assessment & Plan Assessment & Plan (1) Osteoarthritis of left knee: Code(s): M17.12 - Unilateral primary osteoarthritis, left knee Category: Medical (2) Osteoarthritis of right knee: Code(s): M17.11 - Unilateral primary osteoarthritis, right knee Category: Medical Plan Ms. Carcamo presents with bilateral knee pains due to osteoarthritis. I had a lengthy discussion with the patient regarding the treatment options. I will see if the patient's insurance company will cover a viscosupplementation injection, such as Durolane, for both of her knees. I will see her back once the injections are available. Feel free to call me at any time should questions regarding her orthopedic management arise. Thank you very much for asking me to see this very friendly patient. I spent 22 minutes in reviewing the patient's records and imaging studies, seeing the patient and documenting in the medical record. Orders: Orders XR Knee Byron 3V Today M25.561 - Pain in right knee, M25.562 - Pain in left knee Coding Level of Care Code New Pt Level 3 (88934) Complex EM visit Add On G2211 Diagnoses Osteoarthritis of left knee M17.12 Osteoarthritis of right knee M17.11
[2025-05-18 11:03] VITALS: BMI 43.3
--- OUTSIDE RECORDS SUMMARY | 2025-05-18 12:11 | XMS_ITS | Patient Health Record ---
Author Organization [facility] Address [address] [facility] [place] [place] [address] Care Team Providers Care Bullard Operator Name Role Phone Kajal White MD Primary Care Provider Unavaila Cari Yi Unavailable [phone] Allergies Allergen (clinical drug ingredient) Drug/Non Drug [...] Duration) Notes Start Date End Date Status Kerasal 5-10 % 1 application Externally Once a day 07/28/2024 Active Pantoprazole Sodium 40 MG 1 tablet Orall y Once a day; Duration: 30 day(s) Active Irbesartan 300 MG 1 tablet Orally Once a day; Duration: 30 day(s) Not-Taking Furosemide 40 MG 1 tablet Orally Once a day; Duration: 30 day(s) Active Night Splint AFO - L1930 as directed 05/30/2019 Not-Taking Medrol heidy 4mg as directed orally a s directed; Duration: 6 days 12/18/2022 Not-Taking Keflex 500 MG 1 capsule Orally briana ry 12 hrs; Duration: 10 day(s) 09/29/2019 Not-Taking Labetalol HCl 300 MG 1 tablet Orally Twi ce a day; Duration: 30 day(s) Active Breo Ellipta 100-25 MCG/INH 1 puff Inhalation Once a day Active Valsartan 320 MG 1 tablet Orally Once a day; Duration: 30 day(s) Active amLODIPine Besylate 10 MG 1 tablet Orall y Once a day; Duration: 30 day(s) Active Immunizations Vaccine Route Administration Date Status Comme nts Influenza Unknown 05/11/2025 Refused COVID-19 Moderna Vaccine Unknown 09/10/2021 Administered 1st [...] (Standard) Question Answer Notes Tobacco use: Nonsmoker AUDIT-C (Standard) Question Answer Notes Did you have a drink containing alcohol in the p ast year? No Points 0 Interpretation Negative Problems Problem Type SNOMED Code ICD Code Onset Dates Problem Status W/U Status Risk Notes Problem Arthritis (4963000) Arthritis (M19.90) Active confirmed Problem Localized, primary osteoarthritis of the ankle and/or foot (358666885) Arthritis of ankle (M19.079) Active confirmed Vital Signs Blood pressure diastolic 65 mm Hg 05/11/2025 Height 5ft4in in 05/11/2025 Blood pressure systolic 132 mm Hg 05/11/2025 Weight 260 lbs 05/11/2025 BMI 44.62 kg/m2 05/11/2025 Procedures Procedure Date Ordered Date Performed Result Body Sit e 83434-NHVUBWG NAIL, 6 OR MORE 07/28/2024 N/A 79627-FZTRLIU NAIL, 6 OR MORE 11/03/2024 N/A 88695-Cievvskn Plate 11/03/2024 N/A 21372-OEHWDDY NAIL, 6 OR MORE 02/09/2025 N/A 38879, M8167-XIMJV/INJECT, JOINT/BURSA 02/09/2025 N/A 30428-GTULHBZ NAIL, 6 OR MORE 05/11/2025 N/A Encounters Encounter Location Date Provider Diagnosis [facility] [place] [address] [place] [address] 07/28/2024 Cari Black Arthralgia of left ankle M25.572 ; Xerosis of skin L85.3 ; Arthritis M19.90 ; Arthritis of ankle M19.079 ; Tinea unguium B35.1 ; Pain in right toe(s) M79.674 and Pain in left toe(s) M79.[address] [address] 11/03/2024 Cari Black Arthralgia of left ankle M25.572 ; Xerosis of skin L85.3 ; Arthritis M19.90 ; Arthritis of ankle M19.079 ; Tinea unguium B35.1 ; Pain in right toe(s) M79.674 ; Pain in left toe(s) M79.675 and Ingrown nail L60.[address] [address] 02/09/2025 Cari Black Arthralgia of left ankle M25.572 ; Arthritis M19.90 ; Arthritis of ankle M19.079 ; Tinea unguium B35.1 ; Pain in right toe(s) M79.674 and Pain in left toe(s) M79.[address] [address] 05/11/2025 Cari Black Arthralgia of left ankle M25.572 ; Arthritis M19.90 ; Arthritis of ankle M19.079 ; Tinea unguium B35.1 ; Pain in right toe(s) M79.674 and Pain in left toe(s) M79.675 Assessments Encounter Date Diagnosis (ICD Code) Assessment Notes Treatment Notes Treatment Clinical Notes Section Notes 07/28/2024 Xerosis of skin (ICD-10 - L85.3) 07/28/2024 Arthralgia of left ankle (ICD-10 - M25.572) Resistant to previous conservative treatment Patient Educated with: INJECTIONCHING MATHEWS.pdf (INJECTIONTHER APY.pdf) 11/03/2024 Xerosis of skin (ICD-10 - L85.3) 11/03/2024 Arthralgia of left ankle (ICD-10 - M25.572) Response to treatment - Improvement 02/09/2025 Arthritis (ICD-10 - M19.90) 02/09/2025 Arthralgia of left ankle (ICD-10 - M25.572) Recurrent Patient Educated with: RICE THERAPY.pdf (RICE THERAPY.pdf) 05/11/2025 Arthritis (ICD-10 - M19.90) 05/11/2025 Arthralgia of left ankle (ICD-10 - M25.572) Response to treatment - Improvement 05/11/2025 Arthritis of ankle (ICD-10 - M19.079) 11/03/2024 Arthritis (ICD-10 - M19.90) 07/28/2024 Arthritis (ICD-10 - M19.90) 02/09/2025 Arthritis of ankle (ICD-10 - M19.079) 07/28/2024 Arthritis of ankle (ICD-10 - M19.079) 05/11/2025 Tinea unguium (ICD-10 - B35.1) 11/03/2024 Arthritis of ankle (ICD-10 - M19.079) 02/09/2025 Tinea unguium (ICD-10 - B35.1) 02/09/2025 Pain in right toe(s) (ICD-10 - M79.674) 05/11/2025 Pain in right toe(s) (ICD-10 - M79.674) 11/03/2024 Tinea unguium (ICD-10 - B35.1) 07/28/2024 Tinea unguium (ICD-10 - B35.1) 07/28/2024 Pain in right toe(s) (ICD-10 - M79.674) 11/03/2024 Pain in right toe(s) (ICD-10 - M79.674) 05/11/2025 Pain in left toe(s) (ICD-10 - M79.675) 02/09/2025 Pain in left toe(s) (ICD-10 - M79.675) 11/03/2024 Pain in left toe(s) (ICD-10 - M79.675) 07/28/2024 Pain in left toe(s) (ICD-10 - M79.675) 11/03/2024 Ingrown nail (ICD-10 - L60.0) Plan Of Treatment Pending Test Test Name Order Date 16363-VBHQZLF NAIL, 6 OR MORE 01/29/2023 14808-ZOGYHWH NAIL, 6 OR MORE 04/09/2023 73814-QBGYSPW NAIL, 6 OR MORE 06/25/2023 31356-JPBJINL NAIL, 6 OR MORE 10/01/2023 20158-HGLFQTO NAIL, 6 OR MORE 12/31/2023 66364-WLUKDRM NAIL, 6 OR MORE 04/21/2024 63425-LTIENNZ NAIL, 6 OR MORE 07/28/2024 61728-RHORGZF NAIL, 6 OR MORE 11/03/2024 64324-IVZISXO NAIL, 6 OR MORE 02/09/2025 72139-GDICEXB NAIL, 6 OR MORE 05/11/2025 35811-TIHJTJD NAIL, 1-5 03/08/2020 98135-Rmphbpze Plate 11/03/2024 26784-Osbluucy Plate 10/01/2023 68554-COO 09/29/2019 74644- Debride <25 sq cm 10/27/2019 36041- Debride <25 sq cm 11/24/2019 49905- Debride <25 sq cm 03/08/2020 68805-BFHJVSZ SKIN/TISSUE 10/13/201986239, J0702- INJECT or DRAIN, JOINT/BUR SA 06/25/2023 88249, J0702- INJECT or DRAIN, JOINT/BUR SA 04/21/202466313, J0702- INJECT or DRAIN, JOINT/BUR SA 01/29/202388401, C2207-PPCID/INJECT, JOINT/BURSA 0 02/09/2025 10634,N2110-DVG TENDON SHEATH/LIGAMENT 1 Next Appt Details Provider Name:Cari Sepulveda , 08/24/2025 01:30:00 PM, [address] [facility], [place], [address], Insurance Providers Payer Name Payer Address Payer Phone Subscriber Number Group Number Insured Name Patient Relationship to Insured Coverage Start Date Coverage End Date Medicare National Govt [facility] [address] [place] [address] [id number] Annie Carcamo Self - patient is the insured 6 [employer]) [address] [place] [address] [phone] [id number] Annie Carcamo Self - patient is the insured Medical (General) History Medical History History ICD Code Arthritis asthma Back,Hip,and Knee pain Heart disease Hypertension Kidney disease Osteoporosis Poor circulation Reflux ( GERD) Sinus conditions Chicken pox Measles Mumps Barretts esophagus 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
--- OUTSIDE RECORDS SUMMARY | 2025-05-18 12:11 | XMS_ITS | Clinical Summary ---
Author Organization [facility], Address [address] [place] [address] [place] [address] Phone Care Team Providers Care Operations Manager Station Name Role Phone Kajal White MD Primary Care Provider [phone] Allergies No known active allergies Medications albuterol HFA (ProAir HFA) 108 (90 Base) MCG/ACT inhaler Inhale 2 puffs 4 (four) times a day Active amLODIPine (NORVASC) 10 MG tablet Comments: Filled Date: Dec 08 2016 12:00AM Patient Notes: TAKE 1 TABLET BY MOUTH EVERY DAY Duration: 06/09/20 16 Active Fluticasone Furoate-Vilant danielito (Breo Ellipta) 100-25 MCG/INH aerosol powder 1 puff by Other route 1 (one) time each day 05/26/20 19 Active furosemide (LASIX) 40 MG tablet Comments: Filled Date: Dec 08 2016 12:00AM Patient Notes: TAKE 1/2 TABLET BY MOUTH DAILY Duration: 06/09/20 16 Active labetalol (NORMODYNE) 300 MG tablet Comments: Filled Date: Jan 19 2017 12:00AM Patient Notes: TAKE 1 TABLET BY MOUTH TWICE A DAY Duration: 10/21/19 17 Active pantoprazole (PROTONIX) 40 MG EC tablet Comments: Filled Date: Dec 25 2016 12:00AM Patient Notes: TAKE 1 TABLET EVERY DAY Duration: 06/10/20 16 Active triamcinolone (KENALOG) 0.1 % cream Apply topically 1 (one) time each day Apply topically daily 04/01/20 23 Active valsartan (DIOVAN) 320 MG tablet Take 320 mg by mouth 1 (one) time each day 03/15/20 23 Active irbesartan (AVAPRO) 300 MG tablet Comments: Filled Date: Dec 08 2016 12:00AM Patient Notes: TAKE 1 TABLET BY MOUTH EVERY DAY Duration: 90 09/08/20 16 025 Discontinued Active Problems Problem Noted Date Diagnosed Date Chronic kidney disease stage 3 02/29/2020 Chronic kidney disease stage 3 due to hypertensi on 02/29/2020 Encounters Date Type Department Care Team Description 05/12/2025 2:15 PM EDT [facility] [address] [place] [address] Tarik Foster MD Chronic kidney disease stage 3 due to hypertension (HCC) (Primary Dx); Hypercalcemia; Hypertension 04/27/2025 Orders Only [facility] [address] [place] [address] Leslie Pollock MA Chronic kidney disease stage 3 due to hypertension (HCC) (Primary Dx); Hypercalcemia from Last 3 Months Social History Tobacco Use Types Packs/Day Years Used Date Smoking Tobacco: Former Comments:Smoking History Inf o:Every day Alcohol Use Standard Drinks/Week Comments No 0 (1 standard drink = 0.6 oz pur e alcohol) Comments Unknown Sex and Gender Information Value Date Recorded Sex Assigned at Not on file Legal Sex Female 4:30 PM EST Gender Identity Not on file Sexual Orientation Not on file Last Filed Vital Signs Vital Sign Reading Time Taken Comments Blood Pressure 130/78 05/18/2024 2:02 PM EDT Pulse - - Temperature - - Respiratory Rate - - Oxygen Saturation - - Inhaled Oxygen Concentration - - Weight 113 kg (249 lb) 05/18/2024 2:02 PM EDT Height 162.6 cm (5' 4 ) 02/25/2018 12:00 PM EDT Body Mass Index 42.74 02/25/2018 12:00 PM EDT Plan of Treatment Upcoming Encounters Date Type Department Care Team (Late st Contact Info) Description 05/09/2026 1:45 PM EDT Office [facility] [address] [place] [phone] Tarik Foster MD [address] [place] [address] Health Maintenance Due Date Last Done Comments Breast Cancer Screening 1950 Pneumococcal Vaccine: 50+ Ye ars (1 of 2 - PCV) 1970 Colorectal Cancer Screening: Annual FOBT 02/29/2000 Colorectal Cancer Screening: Colonoscopy 02/29/2000 Colorectal Cancer Screening: Sigmoidoscopy 02/29/2000 Influenza Vaccine (#1) 2025 Hepatitis B Vaccine Aged Out No longe r eligible based on patient's age to complete this topic Insurance Medicare [facility] Care Teams Operations Manager Station Relationship Specialty Start Date End Date Kajal White MD 1960 [facility] [place] [id number] PCP - General Internal Medicine 05/07/22
--- OUTSIDE RECORDS SUMMARY | 2025-05-18 12:11 | XMS_ITS | Clinical Summary ---
Author Organization [facility] Address [address] [place] [address] Phone Care Team Providers Care Corn Husker Machine Operator Name Role Phone Kajal White MD Primary Care Provider [phone] Allergies Active Allergy Reactions Criticality Noted Date Comments Fentanyl 04/20/2025 Sulfa (Sulfonamide Antibiotics) Rash 03/23 Medications Breo Ellipta 100-25 mcg/dose inhaler INHALE 1 PUFF BY MOUTH EVERY DAY AT THE SAME TIME EVERY DAY 02/02/2025 Active amLODIPine (NORVASC) 10 mg tablet Take 1 tablet (10 mg total) by mouth 1 (one) time each day. 12/14/2024 Active furosemide (LASIX) 40 mg tablet take 1 tablet (40 mg) orally daily 01/20/2025 Active labetaloL (NORMODYNE) 300 mg tablet Take 1 tablet (300 mg total) by mouth 2 (two) times a day. 02/02/2025 Active pantoprazole (PROTONIX) 40 mg EC tablet Take 1 tablet (40 mg total) by mouth 1 (one) time each day. 02/25/2025 Active valsartan (DIOVAN) 320 mg tablet 03/05/2025 Active calcium carbonate-vitami n D (Calcium 600 + D,3,) 600 mg-10 mcg (400 unit) per tablet Take by mouth. 11/18/2021 Active multivit with minerals/lutein (MULTIVITAMIN 50 PLUS ORAL) Take 1 tablet by mouth. 11/18/2021 Active docusate sodium (COLACE) 100 mg tablet Take 1 tablet (100 mg total) by mouth. 11/28/2021 Active Encounters Date Type Department Care Team Description 04/20/2025 10:45 AM EDT [facility] [address] [place] [phone] Husam Hatch MD Moderate asthma without complication, unspecified whether persistent (Primary Dx); Morbid obesity due to excess calories (CMS/HCC V24, CMS/HCC V28); Gastroesophageal reflux disease without esophagitis; Seasonal allergic rhinitis due to pollen; Lymphedema of both lower extremities from Last 3 Months Social History Tobacco Use Types Packs/Day Years Used Date Smoking Tobacco: Never Assessed Comments Unknown Sex and Gender Information Value Date Recorded Sex Assigned at Not on file Legal Sex Female 4:04 PM EDT Gender Identity Not on file Sexual Orientation Not on file Last Filed Vital Signs Vital Sign Reading Time Taken Comments Blood Pressure 157/55 04/20/2025 10:45 AM EDT Pulse 72 04/20/2025 10:45 AM EDT Temperature 35.9 C (96.7 F) 04/20/2025 10:45 AM EDT Respiratory Rate - - Oxygen Saturation 99% 04/20/2025 10:45 AM EDT Inhaled Oxygen Concentration - - Weight 117 kg (259 lb) 04/20/2025 10:45 AM EDT Height - - Body Mass Index - - Plan of Treatment Upcoming Encounters Date Type Department Care Team (Late st Contact Info) Description 07/27/2025 10:00 AM EST Office Visit [facility] [address] [phone] Husam Hatch MD [address] [place] [phone] Health Maintenance Due Date Last Done Comments Breast Cancer Screening 1950 DTaP,Tdap,and Td Vaccines (1 - Tdap) 1970 Zoster Vaccines (1 of 2) 2001 RSV Immunization Adult Patients (1 - Risk 60-74 years 1-dose series) 2011 COVID-19 Vaccine ( season) 2024 07/23/2023, 09/26/2022, 09/04/2021, Additional history exists Depression Screening 09/21/2024 Cholesterol Screening (Lipid Panel) 03/02/2025 Colorectal Cancer Screening: Colonoscopy 03/02/2025 Falls Risk Assessment 03/02/2025 Hepatitis C Screening 03/02/2025 Medicare Annual Wellness Visit 03/02/2025 Osteoporosis Screening (Bone Density Screening) 03/02/2025 Social Influencers of Health Screening 03/02/2025 Influenza Vaccine (#1) 2025 3, 07/06/2022, 06/25/2020, Additional history exists Pneumococcal Vaccine: 50+ Years Completed 05/22/2023 HIB Vaccines Aged Out No longer eligi ble based on patient's age to complete this topic HPV Vaccines Aged Out No longer eligi ble based on patient's age to complete this topic Hepatitis A Vaccines Aged Out No long er eligible based on patient's age to complete this topic Hepatitis B Vaccines Aged Out No long er eligible based on patient's age to complete this topic IPV Vaccines Aged Out No longer eligi ble based on patient's age to complete this topic MMR Vaccines Aged Out No longer eligi ble based on patient's age to complete this topic Meningococcal ACWY Vaccine Aged Out N o longer eligible based on patient's age to complete this topic Meningococcal B Vaccine Aged Out No l onger eligible based on patient's age to complete this topic RSV Immunization Patients Under 20 months Aged Out No longer eligible based on patient's age to complete this topic Varicella Vaccines Aged Out No longer eligible based on patient's age to complete this topic Procedures Procedure Name Priority Date/Time Associated Diagnosis Comments PULMONARY FUNCTION TESTING Routine 03/09/2025 3:40 PM EDT from Last 3 Months Results * Pulmonary function testing: (03/09/2025 3:40 PM EDT) us Historical Provider PFT ORDERABLES Final Res ult from Last 3 Months [facility] Care Teams Corn Husker Machine Operator Relationship Specialty Start Date End Date Kajal White MD [facility] [place] [address] PCP - General Internal Medicine 04/20/25
== END 2025-05-18 11:19 | disposition home or self-care (01) ==
LOC: HO.HOS 10:45
PROVIDERS: PCP Internal Medicine; Visit Provider Orthopaedic Surgery
DX: M17.0 Bilateral primary osteoarthritis of knee (principal)
CPT/HCPCS: 99203; G2211

== ENCOUNTER → 2025-05-18 10:46 | Outpatient (BNV) | payer MEDICARE, OTHER, SELFPAY | PROVIDERS: Visit Provider Radiology Diagnostic Radiology | DX: M17.0 Bilateral primary osteoarthritis of knee (principal); M25.461 Effusion, right knee | CPT/HCPCS: 73562 ==

== ENCOUNTER 2025-06-28 11:02 | Outpatient (AMB) | payer MEDICARE, OTHER, SELFPAY ==
--- NOTE | 2025-06-28 11:11 | MHC.OFFVIS ---
Vital Signs 06/28/25 11:15 Height 5 ft 3 in Weight 253 lb BMI 44.8 Intake Visit Reasons: Bilateral knees, Durolane Injections Intake Note: Annie is a 75 year old female who presents with complaints of progressively worsening bilateral knee pains. She describes her pains as sharp in nature. She has failed the last 3 months of conservative treatment which has included Tylenol, anti-inflammatory medicines, physical therapy exercises and a home exercise program. She has had cortisone injections in the past which gave her minimal relief. She has not had a viscosupplementation injection. Allergies NSAIDS (Non-Steroidal Anti-Inflamma Adverse Reaction (Severe, Verified 06/28/25 11:15) ulcers fentanyl Adverse Reaction (Intermediate, Verified 06/28/25 11:15) she was told by surgeon that she had medication reaction Medication List - Last Reconciled 06/28/25 by Edward Roger MD acetaminophen ER (Tylenol Arthritis Pain) 1,300 mg PO Q8H albuterol sulfate 90 mcg/actuation inhalation amlodipine 10 mg PO DAILY comp.stocking,knee,long,medium As directed 30-40mmhg compr.stocking,knee,long,x-lrg 30-40 mmHg compression doxycycline hyclate 100 mg PO BID furosemide 40 mg PO DAILY labetalol 300 mg PO BID montelukast 10 mg PO DAILY pantoprazole 40 mg PO DAILY valsartan 320 mg PO DAILY walker As directed [facility] Medical History Gall stones Abdominal pain Annual physical exam Asthma Chest pain Mitral regurgitation Osteoporosis History of mammogram Venous insufficiency Martínez's esophagus CKD (chronic kidney disease), stage III Heart murmur HTN (hypertension) Surgical History S/P total abdominal hysterectomy H/O colonoscopy H/O hysterectomy with unilateral oophorectomy Family History Father No problems noted. Mother CVD (cardiovascular disease) Social History Housing: Condominium Alcohol intake: never Patient Tobacco Use Status: Former Tobacco user Tobacco use type: Cigarette Years Smoked: 8 years e-Cigarette/Vaping Use: Never Used Second Hand Smoke Exposure: No service: No Current occupational status: retired Cognitive needs: No Hearing needs: No Vision needs: Yes Physical Exam Vital Signs: BMI result Body Mass Index 44.8 Const Other: Well-nourished well-developed very friendly female awake alert and oriented x3 in no acute distress Extrem Other: Bilateral knee examination shows minimal effusions, palpable crepitus with range of motion, pain with range of motion, no instability Results Reviewed Results Reviewed: X-rays of the patient's bilateral knee show joint space narrowing, subchondral sclerosis, no acute bony abnormalities Assessment & Plan Assessment & Plan (1) Osteoarthritis of left knee: Code(s): M17.12 - Unilateral primary osteoarthritis, left knee Category: Medical (2) Osteoarthritis of right knee: Code(s): M17.11 - Unilateral primary osteoarthritis, right knee Category: Medical Plan Ms. Carcamo presents with bilateral knee pains due to osteoarthritis. The risks and benefits of bilateral knee Durolane viscosupplementation injections were discussed at length with the patient. The patient wished to proceed. She tolerated the injections well. She will continue with her activity modifications. She will contact me prior to her follow-up appointment in 3 months should any questions or concerns arise. Feel free to call me at any time should questions regarding her orthopedic management arise. I spent 21 minutes in reviewing the patient's records and imaging studies, seeing the patient and documenting in the medical record. Orders: Orders AMB Joint Injection/Aspiration Today M17.12 - Unilateral primary osteoarthritis, left knee AMB Joint Injection/Aspiration Today M17.11 - Unilateral primary osteoarthritis, right knee Coding Level of Care Code Est Pt Level 3 (65808) Complex EM visit Add On G2211 Diagnoses Osteoarthritis of left knee M17.12 Osteoarthritis of right knee M17.11
[2025-06-28 11:15] VITALS: BMI 44.8
== END 2025-06-28 11:50 | disposition home or self-care (01) ==
LOC: HO.HOS 11:03
PROVIDERS: Visit Provider Orthopaedic Surgery
DX: M17.0 Bilateral primary osteoarthritis of knee (principal)
CPT/HCPCS: 20610; 99213

== ENCOUNTER → 2025-06-28 11:02 | Outpatient (BNVA) | payer MEDICARE, OTHER, SELFPAY | PROVIDERS: Visit Provider Orthopaedic Surgery | DX: M17.0 Bilateral primary osteoarthritis of knee (principal) | CPT/HCPCS: 20610; 99212; J2003; J7318 ==

== ENCOUNTER 2025-08-26 10:04 | Outpatient (REF) | payer MEDICARE, OTHER, SELFPAY ==
--- OUTSIDE RECORDS SUMMARY | 2025-08-16 07:30 | XMS_ITS | Continuity of Care Document ---
Author Organization [facility] Address [address] [place] [address] Phone Care Team Providers Care Credit Portfolio Advisor Name Role Phone Rebeka Albright Unavailable Unavailable Allergies, Adverse Reactions, Alerts Substance Reaction Status Criticality Sulfa (Sulfonamide Antibiotics) Active No Information Procedures Procedure Date Duplex Scan-extrem Veins; Uni/ CT & [place] N Inj Scleros Solut; Mx Veins 1- CT & MA N Ultrason Guidan Needle Bx-rad- CT & MA N Duplex Scan-extrem Veins; Uni/ CT & MA N ov Duplex Scan-extrem Veins; Uni/ CT & MA N Inj Scleros Solut; Mx Veins 1- CT & MA N Ultrason Guidan Needle Bx-rad- CT & MA N Endovenous Laser, 1st Vein- CT & [place] Endovenous Rf, 1st Vein- CT & [place] 2024 Office/Oupt E&M New Pt 60 Mins- CT & [place] Surgical Stockings Juxlite Knee 025 Duplex Scan-extrem Veins; Comp- CT & [place] Advance Directives Directive Yes / No Effective Date File Name No Information Encounters Encounter Description Practice Location Reason(s) For Visit Diagnoses Date Provider Providers Copied on Encounter [facility], [address] [address], [id number], [place] tel:[phone] [facility] Encounter for follow-up examination after completed treatment for conditions other than malignant neoplasmChroni c venous hypertension (idiopathic) with other complications of right lower extremity 5 Natalee Staley. [address], [address], [place], [place], [id number], [place]. tel:[phone] Referring Provider: Tanner [address] [place], [address]. tel:[phone] [facility], [address] [place] [address] [address] [place], [id number], [place] tel:[phone] CVR [facility] Chronic venous hypertension (idiopathic) with inflammation of right lower extremity 5 Merritt GONZALEZ RVT, ALHAJI Leon. [address] [place] [address], [facility] [place], [id number], [place]. tel:[phone] Referring Provider: T[place] [address] [place], [address]. tel:[phone] [facility] MD [facility], [address] [place] [address] [address] [place], [id number], [place] tel:[phone] [facility] Encounter for follow-up examination after completed treatment for conditions other than malignant neoplasmVarico se veins of right lower extremity with pain 5 Merritt GONZALEZ RVT, ALHAJI Leon. [address] [place] [address], [facility] [place], [id number], [place]. tel:[phone] Referring Provider: T[place] [place], [address]. tel:[phone] [facility] MD [facility], [address] [place] [address] [address] [place], [id number], [place] tel:[phone] CVR [facility] Encounter for follow-up examination after completed treatment for conditions other than malignant neoplasmChroni c venous hypertension (idiopathic) with other complications of right lower extremity 5 Merritt GONZALEZ RVT, ALHAJI Leon. [address] [place] [address], [address] [facility], [place] [facility] [place], [id number], [place]. tel:[phone] Referring Provider: Tanner [address] [place], [address]. tel:[phone] [facility] MD [facility], [address] [place] [address] [address] [place], [id number], [place] tel:[phone] CVR - [place] - [place] Varicose veins of right lower extremity with other complications 5 Kal Cheng. [address] [place] [address], [place] [address], [place] [facility], [id number], [place]. tel:[phone] Referring Provider: Cl GANDHI, Tanner [address] [place], [address]. tel:[phone] [facility] MD [facility], [address] [place] [address] [address] [address], [id number], [place] tel:[phone] CV[facility] - [place] Varicose veins of right lower extremity with other complications 0- 5 Merritt GONZALEZ RVT, RPVI Robert. [address] [place] [address], [facility], [id number], [place]. tel:[phone] Referring Provider: Cl GANDHI, Tanner [address] [place], [address]. tel:[phone] [facility] MD [facility], [address] [place] [address] [address] [address], [id number], [place] tel:[phone] CVR - [place] - [place] Varicose veins of right lower extremity with other complications 5 Merritt GONZALEZ RVT, ALHAJI Leon. [address] [place] [address], [place] [facility] [facility], [id number], [place]. tel:[phone] Referring Provider: Cl GANDHI, [place] [address], [address]. tel:[phone] [facility], [address] [place] [address] [address] [address], [id number], tel:[phone] CV - [facility] No Information 5 Merritt GONZALEZ RVT, ALHAJI Leon. [address] [place] [address], [place], [place], [id number], [place]. tel:[phone] Office/Oupt E&M New Pt 60 Mins- CT & [place] [facility], [address] [place] [address] [address] [address], [id number], tel:[phone] [facility] Hereditary lymphedemaCram p and spasmLocalized edemaPain in right legPain in left legPain in left lower legChronic venous hypertension (idiopathic) without complications of bilateral lower extremityRestl ess legs syndromeEssent ial (primary) hypertensionLy mphedema, not elsewhere classifiedDiso rder of pigmentation, unspecified 5 Merritt GONZALEZ RVT, ALHAJI Leon. [address] [place] [address], [facility], [id number], [place]. tel:[phone] Referring Provider: Tanner [address] [place], [address]. tel:[phone] [facility], [address] [place] [address] [address] [address], [place], [id number], [place] tel:[phone] [facility] Chronic venous hypertension (idiopathic) with other complications of bilateral lower extremity 5 Merritt GONZALEZ RVT, RPVI Robert. [address] [place] [address], [facility], [id number], [place]. tel:[phone] Referring Provider: Tanner [address] [place], [address]. tel:[phone] Family History Family Member Type Diagnosis Age At Onset No Information Payers Payer name Insurance type Covered constitution party ID Authoriza tion(s) Medicare NORBERTO QUEEN [id number] [facility] [id number] Social History Type Description Quantity Date Captured Comments Sex Female Smoking Status No Information Chief Complaint And Reason For Visit No Information Reason For Referral Reason For Referral No Information Plan Of Treatment Date Type Action Status Goal Diet education completed Referral Ordered: Weight management: Referral to physician timeframe: 3 Months (related to Body mass index (BMI) 45.0-49.9, adult) ordered Appointment Bingle Annie BOOKED Appointment Bingle, Annie BOOKED Appointment Bingle, Annie BOOKED Appointment Bingle, Annie BOOKED Appointment Bingle, Annie BOOKED Appointment Bingle, Annie BOOKED Appointment Bingle Annie BOOKED Appointment Bingle Annie BOOKED Appointment Binglyinka Annie BOOKED History Of Present Illness Encounter Date [...]
--- OUTSIDE RECORDS SUMMARY | 2025-08-24 11:00 | XMS_ITS | Encounter Summary ---
Author Organization [facility] Address [address] [place] [phone] Care Team Providers Care Order Takers Supervisor Name Role Phone Kajal White MD Primary Care Provider [phone] Reason for Referral * Therapy (Routine) - Authorized Specialty Diagnoses / Procedures Referred By Blanche ortiz Referred To Contact Pulmonology Diagnoses Moderate asthma without complication, unspecified whether persistent Morbid obesity due to excess calories (CMS/HCC V24, CMS/HCC V28) Gastroesophageal reflux disease without esophagitis Procedures Pulmonary function testing: Carbon Monoxide Diffusing Capacity, Flow Volume Loop, Helium Dilution Lung Volumes, Nitrogen Wash Out, Spirometry with Bronchodilator, Vital Capacity Test, Spirometry Husam Hatch MD [address] [place] [phone] Phone: tel: fax: Pulmonology [address] [phone] Phone: tel: fax: Referral ID Status Reason Start Date Expiration Date V isits Requested Visits Authorized [id number] Authorized 08/24/2025 08/24/2026 1 1 Reason for Visit * Reason Comments Asthma Follow up for asthma , no recent hospitalizations. Encounter Details Date Type Department Care Team ([facility] st Contact Info) Description 08/24/2025 11:00 AM EST Office Visit Pulmonology [address] [phone] Husam Hatch MD [address] [place] [phone] Moderate asthma without complication, unspecified whether persistent (Primary Dx); Morbid obesity due to excess calories (CMS/[facility] V24, [facility] V28); Gastroesophageal reflux disease without esophagitis; Seasonal allergic rhinitis due to pollen Social History Tobacco Use Types Packs/Day Years Used Date Smoking Tobacco: Never Smokeless Tobacco: Never Comments Unknown Sex and Gender Information Value Date Recorded Sex Assigned at Not on file Legal Sex Female 4:04 PM EDT Gender Identity Not on file Sexual Orientation Not on file documented as of this encounter Last Filed Vital Signs Vital Sign Reading Time Taken Comments Blood Pressure 128/68 08/24/2025 11:02 AM EST Pulse 72 08/24/2025 11:02 AM EST Temperature 36.1 C (97 F) 08/24/2025 11:02 AM EST Respiratory Rate 20 08/24/2025 11:02 AM EST Oxygen Saturation 96% 08/24/2025 11:02 AM EST Inhaled Oxygen Concentration - - Weight 112 kg (246 lb) 08/24/2025 11:02 AM EST Height 162.6 cm (5' 4 ) 08/24/2025 11:02 AM EST Body Mass Index 42.23 08/24/2025 11:02 AM EST documented in this encounter Ordered Prescriptions Prescription Sig Dispense Quantity Refills Last Filled Start Date End Date albuterol HFA (Ventolin HFA) 90 mcg/actuation inhaler Inhale 2 puffs by mouth every 6 (six) hours if needed for shortness of breath or wheezing. 18 g 11 08/24/2025 documented in this encounter Progress Notes * Husam Hatch MD - 08/24/2025 11:00 AM EST ADULT PULMONARY Followup CHIEF COMPLAINT : Asthma (Follow up for asthma, no recent hospitalizations. ) HISTORY OF PRESENT ILLNESS: History of Present Illness Annie Carcamo is a 75 y.o. old, patient is here for follow-up visit, since her last visit to my office overall appears to be doing okay, lymphedema bilateral lower extremity remains an issue, going to vein clinic in this regard, has been Compression stocking on, breathing has been stable, denies any fever or chills, has not been able to lose any weight since her last visit to the office. REVIEW OF SYSTEMS: Review of Systems Cardiovascular: Positive for dyspnea on exertion. All other systems reviewed and are negative. ALLERGIES: Current Allergies[1] ACTIVE MEDICATIONS: Medications Taking[2] PROVIDER ATTESTS THAT THE MEDICATION LIST WAS OBTAINED, REVIEWED AND UPDATED. PAST MEDICAL HISTORY: There are no active problems to display for this patient. Surgical History[3] Surgical History[4] FAMILY HISTORY: Family History[5] SOCIAL HISTORY Social History Socioeconomic History Marital status: Single Spouse name: Not on file Number of children: Not on file Years of education: Not on file Highest education level: Not on file Occupational History Not on file Tobacco Use Smoking status: Never Smokeless tobacco: Never Substance and Sexual Activity Alcohol use: Not on file Drug use: Not on file Sexual activity: Not on file Other Topics Concern Not on file Social History Narrative Not on file IMMUNIZATION: Immunization History Administered Date(s) Administered COVID-19 (Moderna/Spikevax) 12yo and older 07/23/2023 Moderna (age 6mo & older) Bivalent, COVID-19, 0.5 mL or 0.25 mL dosage 09/26/2022 Moderna SARS-CoV-2 COVID-19, mRNA, LNP-S, preservative free 01/07/2021, 02/04/2021, 09/04/2021 PHYSICAL EXAM: Visit Vitals BP 128/68 Pulse 72 Temp 36.1 ??C (97 ??F) (Temporal) Resp 20 Ht 1.626 m (64 ) Wt 112 kg (246 lb) SpO2 96% BMI 42.23 kg/m?? Smoking Status Never BSA 2.14 m?? Physical Exam Vitals and nursing note reviewed. Constitutional: Appearance: Normal appearance. HENT: Head: Normocephalic and atraumatic. Right Ear: Tympanic membrane, ear canal and external ear normal. Left Ear: Tympanic membrane, ear canal and external ear normal. Nose: Nose normal. Mouth/Throat: Mouth: Mucous membranes are moist. Pharynx: Oropharynx is clear. Comments: Mallampati scale of 4, macroglossia. Eyes: Extraocular Movements: Extraocular movements intact. Conjunctiva/sclera: Conjunctivae normal. Pupils: Pupils are equal, round, and reactive to light. Cardiovascular: Rate and Rhythm: Normal rate and regular rhythm. Pulses: Normal pulses. Heart sounds: Normal heart sounds. Pulmonary: Effort: Pulmonary effort is normal. Breath sounds: Normal breath sounds. Abdominal: General: Bowel sounds are normal. Palpations: Abdomen is soft. Comments: Obese. Musculoskeletal: General: Normal range of motion. Cervical back: Normal range of motion and neck supple. Right lower leg: Edema present. Left lower leg: Edema present. Comments: Bilateral lower extremity lymphedema with compression stockings on. Skin: General: Skin is warm. Capillary Refill: Capillary refill takes more than 3 seconds. Neurological: General: No focal deficit present. Mental Status: She is alert and oriented to person, place, and time. Mental status is at baseline. Psychiatric: Mood and Affect: Mood normal. Behavior: Behavior normal. Thought Content: Thought content normal. Judgment: Judgment normal. Diagnostic: CURRENTS ICD-10 PULMONARY DIAGNOSIS 1. Moderate asthma without complication, unspecified whether persistent 2. Morbid obesity due to excess calories (CMS/[facility] V24, CMS/[facility] V28) 3. Gastroesophageal reflux disease without esophagitis 4. 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 1. Asthma, moderate degree, she has been advised to continue with Breo Ellipta 100/25 mcg 1 puff once a day, albuterol HFA 2 puffs every 6 hours as needed for shortness of breath. 2. Morbid obesity, weight loss has been advised, patient has been advised to join a comprehensive weight loss program to lose weight, dietary discretion and portion control has been advised as well. 3. Allergic rhinitis, stable, continue with Zyrtec 10 mg p.o. nightly as needed along with fluticasone nasal spray 2 spray in each nostril twice a day on as- needed basis. 4. GERD/Martínez's esophagus, continue with pantoprazole 40 mg daily and continue to follow-up with GI in this regard. 5. Medications were reconciled with her today. 6. Disposition, follow-up in 3 months. Problem List Items Addressed This Visit None Visit Diagnoses Moderate asthma without complication, unspecified whether persistent - Primary Relevant Medications albuterol HFA (Ventolin HFA) 90 mcg/actuation inhaler Other Relevant Orders Pulmonary function testing: Carbon Monoxide Diffusing Capacity, Flow Volume Loop, Helium Dilution Lung Volumes, Nitrogen Wash Out, Spirometry with Bronchodilator, Vital Capacity Test, Spirometry Morbid obesity due to excess calories (CMS/[facility] V24, CMS/[facility] V28) Relevant Orders Pulmonary function testing: Carbon Monoxide Diffusing Capacity, Flow Volume Loop, Helium Dilution Lung Volumes, Nitrogen Wash Out, Spirometry with Bronchodilator, Vital Capacity Test, Spirometry Gastroesophageal reflux disease without esophagitis Relevant Orders Pulmonary function testing: Carbon Monoxide Diffusing Capacity, Flow Volume Loop, Helium Dilution Lung Volumes, Nitrogen Wash Out, Spirometry with Bronchodilator, Vital Capacity Test, Spirometry Seasonal allergic rhinitis due to pollen -Follow up with Kajal White MD for the other co-morbilities. RETURN TO THE NEXT VISIT: Based on physical exam, symptomatology, tests requested and baseline pulmonary evaluation/disease, I instructed the patient to come back to see me in for reevaluation after the test has been done or earlier if the patient needed. Thanks Kajal White MD for allowing me to have the opportunity to assist in the care of this patient. This chart was generated by the [employer] system and [employer] speech recognition software and may contain inherent errors or omissions not intended by the user. Grammatical errors, random word insertions, deletions, pronoun errors and incomplete sentences are occasional consequences of this technologydue to software limitations. Not all errors are caught or corrected. If there are questions or concerns about the content of this note or information contained within the body of this dictation they should be addressed directly with the author for clarification. Electronically Signed By:Husam Hatch MD I have obtained verbal consent from Annie Carcamo prior to the recording. I have advised Annie Carcamo that she may refuse the recording and require the recording to be turned off at any time during this encounter. [1] Allergies Allergen Reactions Fentanyl Sulfa (Sulfonamide Antibiotics) Rash [2] Outpatient Medications Marked as Taking for the 08/24/25 encounter (Office Visit) with Husam Hatch MD Medication Sig Dispense Refill amLODIPine (NORVASC) 10 mg tablet Take 1 tablet (10 mg total) by mouth 1 (one) time each day. Breo Ellipta 100-25 mcg/dose inhaler Inhale 1 puff by mouth 1 (one) time each day. 1 each 11 calcium carbonate-vitamin D (Calcium 600 + D,3,) 600 mg-10 mcg (400 unit) per tablet Take by mouth. docusate sodium (COLACE) 100 mg tablet Take 1 tablet (100 mg total) by mouth. furosemide (LASIX) 40 mg tablet take 1 tablet (40 mg) orally daily labetaloL (NORMODYNE) 300 mg tablet Take 1 tablet (300 mg total) by mouth 2 (two) times a day. multivit with minerals/lutein (MULTIVITAMIN 50 PLUS ORAL) Take 1 tablet by mouth. pantoprazole (PROTONIX) 40 mg EC tablet Take 1 tablet (40 mg total) by mouth 1 (one) time each day. valsartan (DIOVAN) 320 mg tablet [3] No past surgical history on file. [4] No past surgical history on file. [5] No family history on file. documented in this encounter Plan of Treatment Upcoming Encounters Date Type Department Care Team (Late st Contact Info) Description 11/09/2025 11:00 AM EST Ancillary Procedure Pulmonology - [address] [phone] 11/23/2025 11:30 AM EST Office Visit Pulmonology - [address] [phone] Husam Hatch MD [address] [place] [phone] Scheduled Orders Name Type Priority Associated Diagnoses Orde r Schedule Pulmonary function testing: Carbon Monoxide Diffusing Capacity, Flow Volume Loop, Helium Dilution Lung Volumes, Nitrogen Wash Out, Spirometry with Bronchodilator, Vital Capacity Test, Spirometry PFT Routine Moderate asthma without complication, unspecified whether persistent Morbid obesity due to excess calories (CMS/[facility] V24, CMS/HCC V28) Gastroesophageal reflux disease without esophagitis Expected: 08/24/2025, Expires: 08/24/2026 documented as of this encounter Visit Diagnoses Diagnosis Moderate asthma without complication, unspecified whether persistent- Primary Morbid obesity due to excess calories ([facility] V24, [facility] V28) Gastroesophageal reflux disease without esophagitis Esophageal reflux Seasonal allergic rhinitis due to pollen documented in this encounter Care Teams Order Takers Supervisor Relationship Specialty Start Date End Date Kajal White MD [facility] [place] [address] PCP - General Internal Medicine 04/20/25 documented as of this encounter
--- OUTSIDE RECORDS SUMMARY | 2025-08-26 10:07 | XMS_ITS | Clinical Summary ---
Author Organization [address] [facility] Address [address] [place] [address] Phone Care Team Providers Care Zigzag Topstitcher Name Role Phone Kajal White MD Primary Care Provider [phone] Allergies Active Allergy Reactions Criticality Noted Date Comments Fentanyl 04/20/2025 Sulfa (Sulfonamide Antibiotics) Rash 03/23 Medications amLODIPine (NORVASC) 10 mg tablet Take 1 tablet (10 mg total) by mouth 1 (one) time each day. 5 Active furosemide (LASIX) 40 mg tablet take 1 tablet (40 mg) orally daily 5 Active labetaloL (NORMODYNE) 300 mg tablet Take 1 tablet (300 mg total) by mouth 2 (two) times a day. 5 Active pantoprazole (PROTONIX) 40 mg EC tablet Take 1 tablet (40 mg total) by mouth 1 (one) time each day. 5 Active valsartan (DIOVAN) 320 mg tablet 5 Active calcium carbonate-vitami n D (Calcium 600 + D,3,) 600 mg-10 mcg (400 unit) per tablet Take by mouth. 2 Active multivit with minerals/lutein (MULTIVITAMIN 50 PLUS ORAL) Take 1 tablet by mouth. 2 Active docusate sodium (COLACE) 100 mg tablet Take 1 tablet (100 mg total) by mouth. 2 Active Breo Ellipta 100-25 mcg/dose inhalerIndicatio ns:Moderate asthma without complication, unspecified whether persistent Inhale 1 puff by mouth 1 (one) time each day. 1 each 5 Active albuterol HFA (Ventolin HFA) 90 mcg/actuation inhaler Inhale 2 puffs by mouth every 6 (six) hours if needed for shortness of breath or wheezing. 18 g 11 5 08/24/20 26 Active Encounters Date Type Department Care Team Description 08/24/2025 11:00 AM EST Office Visit Pulmonology [address] [phone] Husam Hatch MD Moderate asthma without complication, unspecified whether persistent (Primary Dx); Morbid obesity due to excess calories (CMS/[facility] V24, [facility] V28); Gastroesophageal reflux disease without esophagitis; Seasonal allergic rhinitis due to pollen from Last 3 Months Social History Tobacco Use Types Packs/Day Years Used Date Smoking Tobacco: Never Smokeless Tobacco: Never Comments Unknown Sex and Gender Information Value Date Recorded Sex Assigned at Not on file Legal Sex Female 4:04 PM EDT Gender Identity Not on file Sexual Orientation Not on file Obstetrics History Last Filed Vital Signs Vital Sign Reading [...] Mass Index 42.23 08/24/2025 11:02 AM EST Plan of Treatment Upcoming Encounters Date Type Department Care Team (Late st Contact Info) Description 11/09/2025 11:00 AM EST Ancillary Procedure Pulmonology [address] [phone] 11/23/2025 11:30 AM EST Office Visit Pulmonology [address] [phone] Husam Hatch MD [facility] [place] [phone] Health Maintenance Due Date Last Done Comments Breast Cancer Screening 1950 Colorectal Cancer Screening: Colonoscopy 1950 DTaP,Tdap,and Td Vaccines (1 - Tdap) 1970 RSV Immunization Adult Patients (1 - Risk 50-74 years 1-dose series) 2001 Zoster Vaccines (1 of 2) 2001 Depression Screening 09/21/2024 Cholesterol Screening (Lipid Panel) 03/02/2025 Falls Risk Assessment 03/02/2025 Hepatitis C Screening 03/02/2025 Medicare Annual Wellness Visit 03/02/2025 Osteoporosis Screening (Bone Density Screening) 03/02/2025 Social Influencers of Health Screening 03/02/2025 COVID-19 Vaccine ( season) 2025 07/23/2023, 09/26/2022, 09/04/2021, Additional history exists Influenza Vaccine (#1) 2025 , 07/06/2022, 06/25/2020, Additional history exists Pneumococcal Vaccine: [...] patient's age to complete this topic Insurance MEDICARE [facility] Care Teams Zigzag Topstitcher Relationship Specialty Start Date End Date Kajal White MD [address] [facility] [place] [id number] PCP - General Internal Medicine 04/20/25
[2025-08-26 11:11] LABS: MANUAL DIFF FLAG NO
[2025-08-26 11:18] LABS: Hematocrit 38.3 % (37.0-47.0); Hemoglobin 12.3 g/dl (12.0-16.0); Imm Gran Abs Auto 0.01 X10*3/uL (0.00-0.03); Imm Gran Pct Auto 0.1 % (0.0-0.4); Lymphocytes Absolute Auto 1.2 X10*3/uL (1.2-4.9); Mean Corpuscular HGB Conc 32.1 g/dl (31.0-35.0); Mean Corpuscular Hemoglobin 31.5 pg (27.0-33.0); Mean Corpuscular Volume 98.2 fL (80.0-98.0); NRBC Abs Auto 0.000 X10*3/uL (0.0-0.012); NRBC Pct Auto 0.0 /100WBC (0.0-0.2); Platelet Count 273 X10*3/uL (160-400); Red Blood Count 3.90 X10*6/uL (4.20-5.50); White Blood Count 7.4 X10*3/uL (4.8-10.8)
[2025-08-26 11:50] LABS: Alanine Aminotransferase 20 U/L (0-31); Albumin Level 4.6 g/dL (3.5-5.0); Alkaline Phosphatase 76 U/L (39-117); Anion Gap 12 (12-20); Aspartate Amino Transferase 22 U/L (5-31); Blood Urea Nitrogen 24 mg/dL (9-16); Calcium 9.8 mg/dL (8.4-10.2); Carbon Dioxide 28 mmol/L (22-29); Chloride 108 mmol/L (96-108); Cholesterol 181 mg/dL (<200); Estimated Glomerular Filt Rate 37; HDL Cholesterol 56 mg/dL (>40); Potassium 4.9 mmol/L (3.3-5.1); Sodium 143 mmol/L (135-145); Total Protein 7.1 g/dL (6.5-8.0); Triglycerides 51 mg/dL (<150)
== END 2025-08-26 10:05 | disposition home or self-care (01) ==
LOC: HO.HMGCLDS 10:04
PROVIDERS: PCP Internal Medicine; Visit Provider Internal Medicine
DX: I12.9 Hypertensive chronic kidney disease with stage 1 through stage 4 chronic kidney disease, or unspecified chronic kidney disease (principal); E66.01 Morbid (severe) obesity due to excess calories; N18.30 Chronic kidney disease, stage 3 unspecified
CPT/HCPCS: 36415; 80053; 80061; 85025

== ENCOUNTER 2025-09-07 10:06 | Outpatient (AMB) | payer MEDICARE, OTHER, SELFPAY ==
--- NOTE | 2025-09-07 10:11 | A.OFFPC_ITS ---
Vital Signs 09/07/25 10:18 Height 5 ft 3 in Weight 250 lb BMI 44.3 BP 128/62 Blood Pressure Location Rt brachial Position Sitting Respiration 17 Pulse 66 Pulse Source Pulse Oximeter Temp 98.3 F Temp Source Oral Pulse Oximetry (%) 96 Oxygen Delivery Method Room Air Intake Visit Reasons: Annual PE Intake Note: Pt is here today for PE. Allergies NSAIDS (Non-Steroidal Anti-Inflamma Adverse Reaction (Severe, Verified 09/07/25 10:19) ulcers fentanyl Adverse Reaction (Intermediate, Verified 09/07/25 10:19) she was told by surgeon that she had medication reaction Medication List - Last Reconciled 09/07/25 by Kajal White MD acetaminophen ER (Tylenol Arthritis Pain) 1,300 mg PO Q8H albuterol sulfate 90 mcg/actuation inhalation amlodipine 10 mg PO DAILY comp.stocking,knee,long,medium As directed 30-40mmhg compr.stocking,knee,long,x-lrg 30-40 mmHg compression doxycycline hyclate 100 mg PO BID furosemide 40 mg PO DAILY labetalol 300 mg PO BID montelukast 10 mg PO DAILY pantoprazole 40 mg PO DAILY valsartan 320 mg PO DAILY walker As directed Tobacco use date assessed: 09/07/25 Fall risk assessment: No Falls in past year Last assessed Fall Risk: 09/07/25 Dental Screening Dental Screen Date: 03/15/25 HPI Annual PE HPI Details Pt presents for PE. PFSH Medical History Gall stones Abdominal pain Annual physical exam Asthma Chest pain Mitral regurgitation Osteoporosis History of mammogram Venous insufficiency Martínez's esophagus CKD (chronic kidney disease), stage III Heart murmur HTN (hypertension) Surgical History S/P total abdominal hysterectomy H/O colonoscopy H/O hysterectomy with unilateral oophorectomy Family History Father No problems noted. Mother CVD (cardiovascular disease) Social History Housing: Condominium Alcohol intake: never Patient Tobacco Use Status: Former Tobacco user Tobacco use type: Cigarette Years Smoked: 8 years e-Cigarette/Vaping Use: Never Used Second Hand Smoke Exposure: No service: No Current occupational status: retired Cognitive needs: No Hearing needs: No Vision needs: Yes Questionnaire Thrive Questionnaire Date Thrive assessed: 03/15/25 What is your living situation today?: I have a steady place to live Within the past 12 months, did the food you bought not last and you didn't have the money to get more?: I choose not to answer this question Within the past 12 months, did you worry whether your food would run out before you got money to buy more?: I choose not to answer this question Do you have trouble paying for medicines?: No Do you have trouble getting transportation to medical appointments?: No Do you have trouble paying your heating and electricity bill?: No Do you have trouble taking care of your child, family member or friend?: No Do you have trouble with day-to-day activities such as bathing, preparing meals, shopping, managing finances, etc.?: No Are you currently unemployed and looking for a job?: No Are you interested in more education?: No Please select the resources that you would like help with: None Currently or been in a relationship where the following occur: I choose not to answer THRIVE Score: 0 RITU-7 AMB Questionnaire RITU-7 Date RITU - 7 assessed: 03/15/25 Source: Developed by Drs. Edward Mccormick, Jemima Parrish, Long Beltre and colleagues, with an educational delfin from [employer] in [place]. Review of Systems Const All systems reviewed & are unremarkable except as noted in HPI and below Eyes Reports no additional complaints ENT Reports no additional complaints Card Reports no additional complaints Resp Reports no additional complaints GI Reports no additional complaints Reports no additional complaints Physical exam (Primary Care) Vital Signs: Last Vital Signs Temp 98.3 F 09/07/25 10:18 Pulse 66 09/07/25 10:18 Resp 17 09/07/25 10:18 BP 128/62 09/07/25 10:18 Pulse Ox 96 09/07/25 10:18 Oxygen Delivery Method Room Air 09/07/25 10:18 BMI result Body Mass Index 44.3 Tobacco/Smoking Status: Tobacco use Status Tobacco use date assessed 09/07/25 09/07/25 10:25 Patient Tobacco Use Status Former Tobacco user 09/07/25 10:11 Tobacco use type Cigarette 09/07/25 10:11 e-Cigarette/Vaping Use Never Used 09/07/25 10:11 Thrive Assessment: Date of Thrive Assessment Date Thrive assessed 03/15/25 09/07/25 10:11 Currently or been in a relationship where the following occur: I choose not to answer Const General: no acute distress HENMT Head: Yes normal to inspection Ears: TM's normal bilaterally Face and sinus: Yes normal facial exam Throat: Yes posterior oropharynx normal Neck Neck: Yes no lymphadenopathy and Yes supple Resp Effort & Inspection: normal respiratory effort Auscultation: clear to auscultation bilaterally Cardio Rhythm: regular rhythm Heart sounds: S1 normal heart sound present and S2 normal heart sound present GI Inspection: Yes normal to inspection Palpation (GI): Soft to palpation Percussion: Yes normal to percussion Auscultation: normal bowel sounds Extrem Other: 4+ nonpitting lymphedema bilaterally Coding Level of Care Code Est Pt Level 4 (66980) Diagnoses HTN (hypertension) I10 Mitral regurgitation I34.0 Morbid obesity E66.01 CKD (chronic kidney disease), stage III N18.30 Lymphedema of both lower extremities I89.0 Assessment & Plan Assessment & Plan (1) HTN (hypertension): Code(s): I10 - Essential (primary) hypertension Category: Medical Plan: Continue current medications (2) Mitral regurgitation: Comment: Echo 3 10/2020, mod MR, mild AR, nl EF. 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 Foster every 6 months Code(s): N18.30 - Chronic kidney disease, stage 3 unspecified Category: Medical Plan: Avoid nephrotoxins monitor renal function (5) Lymphedema of both lower extremities: Comment: Established with vascular surgeon Code(s): I89.0 - Lymphedema, not elsewhere classified Category: Medical Plan: Continue compression knee highs and furosemide Orders: Orders Lipid Panel 6 Months I10 - Essential (primary) hypertension, I34.0 - Nonrheumatic mitral (valve) insufficiency, N18.30 - Chronic kidney disease, stage 3 unspecified Complete Blood Count Auto Diff 6 Months I10 - Essential (primary) hypertension, I34.0 - Nonrheumatic mitral (valve) insufficiency, N18.30 - Chronic kidney disease, stage 3 unspecified TSH reflex Free T4 6 Months I10 - Essential (primary) hypertension, I34.0 - Nonrheumatic mitral (valve) insufficiency, N18.30 - Chronic kidney disease, stage 3 unspecified CA Echo Limited Today I34.0 - Nonrheumatic mitral (valve) insufficiency Comprehensive Sharon. Panel Fast 6 Months I10 - Essential (primary) hypertension, I34.0 - Nonrheumatic mitral (valve) insufficiency, N18.30 - Chronic kidney disease, stage 3 unspecified Hemoglobin A1c 6 Months I10 - Essential (primary) hypertension, I34.0 - Nonrheumatic mitral (valve) insufficiency, N18.30 - Chronic kidney disease, stage 3 unspecified
[2025-09-07 10:18] VITALS: BP 128/62; PULSE 66; RESP 17; TEMP 36.8; O2SAT 96; BMI 44.3
--- OUTSIDE RECORDS SUMMARY | 2025-09-07 12:24 | XMS_ITS | Clinical Summary ---
Author Organization [address] [facility] Address [address] [place] [address] Phone Care Team Providers Care Legal Director Name Role Phone Kajal White MD Primary Care Provider [phone] Allergies Active Allergy Reactions Criticality Noted Date [...] 08/24/2025 11:00 AM EST Office Visit Pulmonology [address] [phone] Husam Hatch MD Moderate asthma without complication, unspecified whether persistent (Primary Dx); Morbid obesity due to excess calories (CMS/[facility] V24, CMS/HCC V28); Gastroesophageal reflux disease without [...] Care Team (Late st Contact Info) Description 11/22/2025 11:00 AM EST Ancillary Procedure Pulmonology [address] [phone] 11/23/2025 11:30 AM EST Office Visit Pulmonology [address] [phone] Husam Hatch MD [address] [place] [address] Health Maintenance Due Date Last Done Comments [...] age to complete this topic Insurance MEDICARE [facility] Care Teams Legal Director Relationship Specialty Start Date End Date Kajal White MD [address] [facility] [place] [address] PCP - General Internal Medicine 04/20/25
--- OUTSIDE RECORDS SUMMARY | 2025-09-07 12:24 | XMS_ITS | Clinical Summary ---
Author Organization [facility], Address [address] [place] [address] [place] [address] Phone Care Team Providers Care Laborer Airport Maintenance Name Role Phone Kajal White MD Primary Care Provider [phone] Allergies No known active allergies Medications albuterol HFA (ProAir HFA) 108 (90 Base) MCG/ACT inhaler Inhale 2 puffs 4 (four) times a day Active amLODIPine (NORVASC) 10 MG tablet Comments: Filled Date: Dec 08 2016 12:00AM Patient Notes: TAKE 1 TABLET BY MOUTH EVERY DAY Duration: 6 Active Fluticasone Furoate-Vilante rol (Breo Ellipta) 100-25 MCG/INH aerosol powder 1 puff by Other route 1 (one) time each day 9 Active furosemide (LASIX) 40 MG tablet Comments: Filled Date: Dec 08 2016 12:00AM Patient Notes: TAKE 1/2 TABLET BY MOUTH DAILY Duration: 6 Active labetalol (NORMODYNE) 300 MG tablet Comments: Filled Date: Jan 19 2017 12:00AM Patient Notes: TAKE 1 TABLET BY MOUTH TWICE A DAY Duration: 7 Active pantoprazole (PROTONIX) 40 MG EC tablet Comments: Filled Date: Dec 25 2016 12:00AM Patient Notes: TAKE 1 TABLET EVERY DAY Duration: 6 Active triamcinolone (KENALOG) 0.1 % cream Apply topically 1 (one) time each day Apply topically daily 3 Active valsartan (DIOVAN) 320 MG tablet Take 320 mg by mouth 1 (one) time each day 3 Active Active Problems Problem Noted Date Diagnosed Date Chronic kidney disease stage 3 02/29/2020 Chronic kidney disease stage 3 due to hypertensi on 02/29/2020 Social History Tobacco Use Types Packs/Day Years [...] Team (Late st Contact Info) Description 05/09/2026 1:30 PM EDT Office Visit [facility] [address] [place] [phone] Tarik Foster MD [address] [place] [phone] Health Maintenance Due Date Last Done Comments Breast Cancer Screening 1950 Pneumococcal Vaccine: 50+ Ye ars (1 of 2 - PCV) 1970 Colorectal Cancer Screening: Annual FOBT 02/29/2000 Colorectal Cancer Screening: Colonoscopy 02/29/2000 Colorectal Cancer Screening: Sigmoidoscopy 02/29/2000 Influenza Vaccine (#1) 2025 Hepatitis B Vaccine Aged Out No longe r eligible based on patient's age to complete this topic Insurance Medicare [facility] Care Teams Laborer Airport Maintenance Relationship Specialty Start Date End Date Kajal White MD [address] [place] [address] PCP - General Internal Medicine 05/07/22
--- OUTSIDE RECORDS SUMMARY | 2025-09-07 12:24 | XMS_ITS | Patient Health Record ---
[facility] Address [address] [facility] [place] [address] Care Team Providers Care Mems Process Engineer Name Role Phone Kajal White MD Primary Care Provider Cari Herron Unavailable [phone] Allergies Allergen (clinical drug ingredient) Drug/Non Drug [...] Duration) Notes Start Date End Date Status Irbesartan 300 MG 1 tablet Orally Once a day; Duration: 30 day(s) Not-Taking Keflex 500 MG 1 capsule Orally briana ry 12 hrs; Duration: 10 day(s) 09/29/2019 Not-Taking Medrol heidy 4mg as directed orally a s directed; Duration: 6 days 12/18/2022 Not-Taking Night Splint AFO - L1930 as directed 05/30/2019 Not-Taking Furosemide 40 MG 1 tablet Orally Once a day; Duration: 30 day(s) Active amLODIPine Besylate 10 MG 1 tablet Orall y Once a day; Duration: 30 day(s) Active Valsartan 320 MG 1 tablet Orally Once a day; Duration: 30 day(s) Active Breo Ellipta 100-25 MCG/INH 1 puff Inhalation Once a day Active Labetalol HCl 300 MG 1 tablet Orally Twi ce a day; Duration: 30 day(s) Active Pantoprazole Sodium 40 MG 1 tablet Orall y Once a day; Duration: 30 day(s) Active Kerasal 5-10 % 1 application Externally Once [...] Status W/U Status Risk Notes Problem Arthritis (7852322) Arthritis (M19.90) Active confirmed Problem Localized, primary osteoarthritis of the ankle and/or foot (882752671) Arthritis of ankle (M19.079) Active confirmed Vital Signs Blood pressure diastolic 70 mm Hg 08/24/2025 Height 5ft4in in 08/24/2025 Blood pressure systolic 130 mm Hg 08/24/2025 Weight 247 lbs 08/24/2025 BMI 42.39 kg/m2 08/24/2025 Procedures Procedure Date Ordered Date Performed Result Body Sit e 22857-BSHDVAT NAIL, 6 OR MORE 11/03/2024 N/A 85419-Zebvbiir Plate 11/03/2024 N/A 80610-SUIPMLZ NAIL, 6 OR MORE 02/09/2025 N/A 87213, H2329-WPVTO/INJECT, JOINT/BURSA 02/09/2025 N/A 01316-MHHCHUU NAIL, 6 OR MORE 05/11/2025 N/A 97912-VEOJKUT NAIL, 6 OR MORE 08/24/2025 N/A Encounters Encounter Location Date Provider Diagnosis [facility] [address] [place] [address] 11/03/2024 Cari Black Arthralgia of left ankle M25.572 ; Xerosis of skin L85.3 ; Arthritis M19.90 ; Arthritis of ankle M19.079 ; Tinea unguium B35.1 ; Pain in right toe(s) M79.674 ; Pain in left toe(s) M79.675 and Ingrown nail L60.[address] [phone] 02/09/2025 Cari Black Arthralgia of left ankle M25.572 ; Arthritis M19.90 ; Arthritis of ankle M19.079 ; Tinea unguium B35.1 ; Pain in right toe(s) M79.674 and Pain in left toe(s) M79.[address] [address] 05/11/2025 Cari Black Arthralgia of left ankle M25.572 ; Arthritis M19.90 ; Arthritis of ankle M19.079 ; Tinea unguium B35.1 ; Pain in right toe(s) M79.674 and Pain in left toe(s) M79.[address] [address] 08/24/2025 Cari Black Pain in left foot M79.672 ; Metatarsalgia, left foot M77.42 ; Tinea unguium B35.1 ; Pain in right toe(s) M79.674 ; Pain in left toe(s) M79.675 ; Pain in left ankle and joints of left foot M25.572 and Bursitis of intermetatarsal bursa of left foot M77.52 Assessments Encounter Date Diagnosis (ICD Code) Assessment Notes Treatment Notes Treatment Clinical Notes Section Notes 11/03/2024 Xerosis of skin (ICD-10 - L85.3) 11/03/2024 Arthralgia of left ankle (ICD-10 - M25.572) Response to treatment - Improvement 02/09/2025 Arthritis (ICD-10 - M19.90) 02/09/2025 Arthralgia of left ankle (ICD-10 - M25.572) Recurrent Patient Educated with: RICE [email or web address] ([email or web address] [email or web address].pdf) 05/11/2025 Arthritis (ICD-10 - M19.90) 05/11/2025 Arthralgia of left ankle (ICD-10 - M25.572) Response to treatment - Improvement 08/24/2025 Metatarsalgia, left foot (ICD-10 - M77.42) 08/24/2025 Pain in left foot (ICD-10 - M79.672) 11/03/2024 Arthritis (ICD-10 - M19.90) 05/11/2025 Arthritis of ankle (ICD-10 - M19.079) 08/24/2025 Tinea unguium (ICD-10 - B35.1) 02/09/2025 Arthritis of ankle (ICD-10 - M19.079) 05/11/2025 Tinea unguium (ICD-10 - B35.1) 11/03/2024 Arthritis of ankle (ICD-10 - M19.079) 02/09/2025 Tinea unguium (ICD-10 - B35.1) 08/24/2025 Pain in right toe(s) (ICD-10 - M79.674) 08/24/2025 Pain in left toe(s) (ICD-10 - M79.675) 02/09/2025 Pain in right toe(s) (ICD-10 - M79.674) 05/11/2025 Pain in right toe(s) (ICD-10 - M79.674) 11/03/2024 Tinea unguium (ICD-10 - B35.1) 11/03/2024 Pain in right toe(s) (ICD-10 - M79.674) 05/11/2025 Pain in left toe(s) (ICD-10 - M79.675) 02/09/2025 Pain in left toe(s) (ICD-10 - M79.675) 08/24/2025 Pain in left ankle and joints of left foot (ICD-10 - M25.572) 11/03/2024 Pain in left toe(s) (ICD-10 - M79.675) 08/24/2025 Bursitis of intermetatarsal bursa of left foot (ICD-10 - M77.52) 11/03/2024 Ingrown nail (ICD-10 - L60.0) Plan Of Treatment Pending Test Test Name Order Date 25924-KGGVVEQ NAIL, 6 OR MORE 01/29/2023 66603-ZNWTHBV NAIL, 6 OR MORE 04/09/2023 97772-KMYHHWP NAIL, 6 OR MORE 06/25/2023 16876-QBIURTT NAIL, 6 OR MORE 10/01/2023 01048-PDDQZDS NAIL, 6 OR MORE 12/31/2023 37839-IHJXXZK NAIL, 6 OR MORE 04/21/2024 99401-NHXWAFJ NAIL, 6 OR MORE 07/28/2024 77641-GVSTJEB NAIL, 6 OR MORE 11/03/2024 18892-XYRXFFJ NAIL, 6 OR MORE 02/09/2025 11937-UATRDFW NAIL, 6 OR MORE 05/11/2025 12012-BYSGTXY NAIL, 6 OR MORE 08/24/2025 85161-GCQZIYY NAIL, 1-5 03/08/2020 78278-Tfdxtvxp Plate 11/03/2024 74486-Rynnfibp Plate 10/01/2023 91931-YDF 09/29/2019 02306- Debride <25 sq cm 10/27/2019 21488- Debride <25 sq cm 11/24/2019 32141- Debride <25 sq cm 03/08/2020 51352-IXLQWAQ SKIN/TISSUE 10/13/2019, J0702- INJECT or DRAIN, JOINT/BUR SA 06/25/2023, J0702- INJECT or DRAIN, JOINT/BUR SA 04/21/2024, J0702- INJECT or DRAIN, JOINT/BUR SA 01/29/202390834, H6093-QPKAV/INJECT, JOINT/BURSA 0 02/09/2025 69924,Z4747-NAM TENDON SHEATH/LIGAMENT 1 Next Appt Details Provider Name:Cari Kinney Derick , 12/14/2025 01:00:00 PM, [address] [facility], [place], [address], Insurance Providers Payer Name Payer Address Payer Phone Subscriber Number Group Number Insured Name Patient Relationship to Insured Coverage Start Date Coverage End Date Medicare National [employer] [address] [facility] [place] [address] [id number] Annie Carcamo Self - patient is the insured 6 [employer]) [address] [place] [address] [id number] Annie Carcamo Self - patient is [...] 1969's total hysterectomy early Gall Bladder 12/10 vein laser surgery Hospitalization History Reason Date(Month/Year) [facility] 12/10
== END 2025-09-07 12:32 | disposition home or self-care (01) ==
LOC: HO.HMCC 10:07
PROVIDERS: PCP Internal Medicine; Visit Provider Internal Medicine
DX: I12.9 Hypertensive chronic kidney disease with stage 1 through stage 4 chronic kidney disease, or unspecified chronic kidney disease (principal); E66.01 Morbid (severe) obesity due to excess calories; N18.30 Chronic kidney disease, stage 3 unspecified; Z68.36 Body mass index [BMI] 36.0-36.9, adult; I34.0 Nonrheumatic mitral (valve) insufficiency; I89.0 Lymphedema, not elsewhere classified

== ENCOUNTER → 2025-09-07 10:06 | Outpatient (BNVA) | payer MEDICARE, OTHER, SELFPAY | PROVIDERS: PCP Internal Medicine; Visit Provider Internal Medicine | DX: I10 Essential (primary) hypertension (principal); I34.0 Nonrheumatic mitral (valve) insufficiency; E66.01 Morbid (severe) obesity due to excess calories; N18.30 Chronic kidney disease, stage 3 unspecified; I89.0 Lymphedema, not elsewhere classified; Z79.899 Other long term (current) drug therapy | CPT/HCPCS: 99212 ==